=== PATIENT | male | born 1940 | race Caucasian/White ===

== ENCOUNTER → 2019-01-20 | Outpatient (CLI) | payer MEDICARE, SELFPAY ==
[2019-01-20 13:03] VITALS: BMI 31.7
== END | disposition home or self-care (01) ==
PROVIDERS: Family Provider Family Medicine; PCP Family Medicine; Visit Provider Physician Assistant
DX: J34.89 Other specified disorders of nose and nasal sinuses (principal)
CPT/HCPCS: 87081

== ENCOUNTER → 2020-11-02 12:08 | Outpatient (CLI) | payer MEDICARE, SELFPAY ==
[2020-09-14 06:48] VITALS: BMI 34.1
[2020-11-02 15:48] LABS: Absolute Lymphocyte Count 1.54 X10^3/uL (0.83-4.51); Absolute Neutrophil Count 4.2 X10^3/uL (2.0-7.7); Basophil# 0.03 X10^3/uL; Basophil% 0.4 % (0-1); Eosinophil# 0.14 X10^3/uL; Eosinophils% 2.1 % (0-5); Hematocrit 42.7 % (40-54); Hemoglobin 13.4 g/dL (13.0-16.5); Lymphocyte # 1.54 X10^3/ul (0.83-4.51); Mean Corp Hgb Conc 31.4 g/dL (32-36); Mean Corpuscular Hgb 29.6 pg (27.0-32.0); Mean Corpuscular Volume 94.3 fL (80-94); Mean Platelet Vol. 11.4 fl (6.2-12.0); Monocyte# 0.78 X10^3/uL; Monocyte% 11.6 % (0-10); NRBC Flagged by Analyzer 0 % (0-5); Neutrophil % 62.8 % (47-70); Platelet Count 162 K/mm3 (150-450); RBC Distribution Width CV 13.4 % (11.6-14.6); RBC Distribution Width SD 46.4 fl (35.1-43.9); Red Blood Count 4.53 M/mm3 (4.6-6.2); White Blood Count 6.7 K/mm3 (4.4-11.0)
[2020-11-02 16:40] LABS: ALB/GLOB Ratio 1.1 RATIO (0.9-2.4); AST(SGOT) 20 U/L (15-37); Alanine Aminotransfer ALT/SGPT 21 U/L (16-61); Albumin, Serum 3.6 g/dL (3.2-5.0); Alkaline Phosphatase 70 U/L (45-117); Anion Gap 4 (5-15); BUN 33 mg/dL (7-18); BUN/Creat Ratio 19.9 RATIO (10-20); Calcium,Total 8.9 mg/dL (8.5-10.1); Chloride 106 mmol/L (98-107); Cholesterol 117 mg/dL (200); Creatinine, Serum 1.66 mg/dL (0.70-1.30); EST Glomerular Filtration Rate 43 mL/min (>60); Est Glom Filt Rate - Afr Amer 52 mL/min (>60); Globulin 3.4 g/dL (2.2-4.2); Glucose 83 mg/dL (74-106); High Density Lipoprotein 45 mg/dL; Magnesium 2.1 mg/dL (1.6-2.6); Potassium 4.4 mmol/L (3.5-5.1); Sodium Level 138 mmol/L (136-145); T4 Free Direct 1.16 ng/dL (0.76-1.46); Triglycerides 115 mg/dL; Very Low Density Lipoprotein 23 mg/dL (5-40)
[2020-11-02 16:44] LABS: Microalbumin,Random Urine 6.2 mg/L (NO RANGE EST.); Microalbumin:Creatinine Ratio 5.3 mg/g CRE (<30 mg/g CRE)
[2020-11-04 16:54] LABS: Thyroid Peroxidase AB 115 IU/mL (0-34)
[2020-11-04 17:04] LABS: Anti-Mitochondrial AB <20.0 Units (0.0-20.0)
== END ==
PROVIDERS: PCP Family Medicine; Visit Provider Family Medicine
DX: I10 Essential (primary) hypertension (principal); E03.9 Hypothyroidism, unspecified; I48.0 Paroxysmal atrial fibrillation
CPT/HCPCS: 36415; 80053; 80061; 82043; 82570; 83516; 83735; 84439; 84443; 85025; 86376

== ENCOUNTER → 2020-11-10 09:48 | Outpatient (CLI) | payer MEDICARE, SELFPAY ==
[2020-09-14 06:48] VITALS: BMI 34.1
[2020-11-10 12:32] LABS: Anion Gap 5 (5-15); BUN 32 mg/dL (7-18); BUN/Creat Ratio 21.1 RATIO (10-20); Calcium,Total 8.5 mg/dL (8.5-10.1); Chloride 108 mmol/L (98-107); Creatinine, Serum 1.52 mg/dL (0.70-1.30); EST Glomerular Filtration Rate 47 mL/min (>60); Est Glom Filt Rate - Afr Amer 57 mL/min (>60); Glucose 88 mg/dL (74-106); Potassium 4.5 mmol/L (3.5-5.1); Sodium Level 140 mmol/L (136-145); Thyroid Stim Hormone (TSH) 2.79 uIU/mL (0.358-3.74)
== END ==
PROVIDERS: PCP Family Medicine; Referring Provider Family Medicine; Visit Provider Family Medicine
DX: I10 Essential (primary) hypertension (principal); L08.9 Local infection of the skin and subcutaneous tissue, unspecified; T14.8XXA Other injury of unspecified body region, initial encounter; X58.XXXA Exposure to other specified factors, initial encounter; Y93.9 Activity, unspecified; Y92.9 Unspecified place or not applicable; Y99.9 Unspecified external cause status
CPT/HCPCS: 36415; 80048; 84443; 87070; 87205

== ENCOUNTER → 2020-11-10 18:12 | Outpatient (CLI) | payer MEDICARE, SELFPAY ==
[2020-11-10 14:44] VITALS: BMI 34.1
== END ==
PROVIDERS: PCP Family Medicine; Visit Provider Physician Assistant
DX: L08.9 Local infection of the skin and subcutaneous tissue, unspecified (principal); T14.8XXA Other injury of unspecified body region, initial encounter
CPT/HCPCS: 87070; 87077; 87186; 87205

== ENCOUNTER → 2020-11-11 12:56 | Outpatient (CLI) | payer MEDICARE, SELFPAY ==
[2020-09-14 06:48] VITALS: BMI 34.1
[2020-11-10 14:44] VITALS: BMI 34.1
--- NOTE | 2020-11-11 12:59 | US_ITS ---
STUDY: THYROID ULTRASOUND REASON FOR EXAM: Male, 80 years old. NODULE TECHNIQUE: Ultrasound evaluation of the thyroid was performed with real-time and static lind-scale imaging. COMPARISON: None. FINDINGS: RIGHT LOBE: The right lobe of the thyroid gland measures 4.4 cm x 1.5 cm x 1.2 cm. There is a heterogeneous echotexture. There are no demonstrated solid, cystic or complex lesions. LEFT LOBE: The left lobe of the thyroid gland measures 4.5 cm x 1.6 cm x 1.0 cm. There is a heterogeneous echotexture. There is a 7 mm x 6 mm x 4 mm mildly echogenic solid nodule in the lower pole of the left lobe of the thyroid. ISTHMUS: The isthmus measures 2.6 mm. The regional lymph nodes are normal. US/Thyroid IMPRESSION: 7 mm x 6 mm x 4 mm mildly echogenic nodule in the lower pole of the left liver. Correlation with nuclear medicine thyroid scan and thyroid uptake examination is recommended. Electronically Signed: Connor Garcia MD at 11:11 EDT , Service support ,
== END ==
PROVIDERS: PCP Family Medicine; Referring Provider Family Medicine; Visit Provider Family Medicine
DX: E04.1 Nontoxic single thyroid nodule (principal)
CPT/HCPCS: 76536

== ENCOUNTER → 2020-11-16 14:00 | Outpatient (CLI) | payer MEDICARE, SELFPAY ==
[2020-09-14 06:48] VITALS: BMI 34.1
[2020-11-10 14:44] VITALS: BMI 34.1
--- NOTE | 2020-11-16 14:02 | ECHOCS_ITS ---
Reason For Study: MURMUR Procedure This was a 2D Doppler, Color Flow transthoracic echocardiogram. The study was technically difficult. Contrast injection was performed. Exam performed in department. Left Ventricle Mild segmental systolic dysfunction (see wall motion). The estimated ejection fraction is 45 %. Unable to assess diastolic dysfunction. Posterior-Basal: Hypokinetic. Basal inferoseptal: Hypokinetic. Mid-Anterior : Hypokinetic. Mid-Lateral : Hypokinetic. Mid-Posterior: Hypokinetic. Mid- inferoseptal : Hypokinetic. Mid-anteroseptal : Hypokinetic. Anterior Van : Hypokinetic. Septal Van : Hypokinetic. Right Ventricle Normal RV size. Normal systolic function. Atria The left atrium is moderately enlarged. Normal right atrium. No doppler evidence for ASD. Mitral Valve There is mild mitral annular calcification. Normal mitral valve. Trivial mitral valve insufficiency. Tricuspid Valve Normal tricuspid valve. Trivial tricuspid valve insufficiency. Unable to estimate RV systolic pressure/pulmonary artery pressure due to technically difficult study. Aortic Valve Trisinus/trileaflet aortic valve. Moderate focal aortic valve calcification. Mild aortic stenosis. Mild (1+) aortic valve insufficiency. Pulmonic Valve The pulmonic valve is not well visualized. Mild (1+) pulmonic valve insufficiency. Great Vessels Normal sized aortic root. Calcified aortic root. Pericardium/Pleural No pericardial effusion. Medication 22 gauge I.V. with prn adaptor inserted into left arm. Diluted definity 7ml given slow IV push to enhance endocardial definition. MMode/2D Measurements & Calculations RVDd: 3.7 cm LVOT diam: 2.0 cm Ao root diam: 3.8 cm LVOT area: 3.0 cm2 LAV(MOD-bp): 117.9 ml LVAd ap4: 44.2 cm2 LVAd ap2: 39.6 cm2 LAV(MOD-bp) Indexed: 53.8 ml/m2 LVLd ap4: 8.7 cm LVLd ap2: 8.7 cm LAV(MOD-sp2): 104.3 ml EDV(MOD-sp4): 183.2 ml EDV(MOD-sp2): 146.0 ml LAV(MOD-sp4): 122.7 ml EDV(sp4-el): 189.5 ml EDV(sp2-el): 153.2 ml LVAs ap4: 28.7 cm2 LVAs ap2: 22.9 cm2 LVLs ap4: 7.2 cm LVLs ap2: 6.8 cm ESV(MOD-sp4): 98.5 ml ESV(MOD-sp2): 63.7 ml ESV(sp4-el): 97.9 ml ESV(sp2-el): 65.8 ml EF(MOD-sp4): 46.2 % EF(MOD-sp2): 56.4 % EF(sp4-el): 48.3 % SV(MOD-sp4): 84.7 ml SV(MOD-sp2): 82.3 ml SV(sp4-el): 91.5 ml LA A4 area: 31.2 cm2 LA dimension(2D): 5.1 cm RA A4 area: 22.3 cm2 Time Measurements MV dec time: 0.23 sec Doppler Measurements & Calculations MV E max emmanuel: 108.9 cm/sec Ao V2 max: 182.8 cm/sec AI max emmanuel: 469.0 cm/sec Ao max P.4 mmHg AI max P.1 mmHg Ao V2 mean: 138.4 cm/sec AI dec slope: 193.0 cm/sec2 Ao mean P.3 mmHg AI P1/2t: 711.9 msec Ao V2 VTI: 39.6 cm NEGRO(I,D): 1.6 cm2 NEGRO(V,D): 1.6 cm2 LV V1 max: 96.3 cm/sec SV(LVOT): 63.3 ml PA V2 max: 106.8 cm/sec LV V1 max P.7 mmHg LV V1 mean P.8 mmHg LV V1 mean: 63.3 cm/sec LV V1 VTI: 21.2 cm PI end-d emmanule: 125.4 cm/sec ECHO/Echo Complete W/ Contrast Interpretation Summary The study was technically difficult. Contrast injection was performed. Mild segmental systolic dysfunction (see wall motion). The estimated ejection fraction is 45 %. The left atrium is moderately enlarged. There is mild mitral annular calcification. Trivial mitral valve insufficiency. Trivial tricuspid valve insufficiency. Mild aortic stenosis. Mild (1+) aortic valve insufficiency. Mild (1+) pulmonic valve insufficiency. Calcified aortic root. Unable to estimate RV systolic pressure/pulmonary artery pressure due to techni costa difficult study. Unable to assess diastolic dysfunction. Ordering Physician: Vinay Blackburn Referring Physician: Vinay Blackburn Performed By: Yari Baltazar, JHON, RVT
== END ==
PROVIDERS: PCP Family Medicine; Referring Provider Family Medicine; Visit Provider Family Medicine
DX: R01.1 Cardiac murmur, unspecified (principal); E04.1 Nontoxic single thyroid nodule
CPT/HCPCS: 93306; Q9957; A4216; C8929

== ENCOUNTER → 2020-11-17 14:22 | Outpatient (CLI) | payer MEDICARE, SELFPAY ==
[2020-11-10 14:44] VITALS: BMI 34.1
[2020-11-17 18:08] LABS: Anion Gap 3 (5-15); BUN 31 mg/dL (7-18); BUN/Creat Ratio 22.6 RATIO (10-20); Calcium,Total 8.7 mg/dL (8.5-10.1); Chloride 107 mmol/L (98-107); Creatinine, Serum 1.37 mg/dL (0.70-1.30); EST Glomerular Filtration Rate 53 mL/min (>60); Est Glom Filt Rate - Afr Amer 64 mL/min (>60); Glucose 95 mg/dL (74-106); Sodium Level 138 mmol/L (136-145)
== END ==
PROVIDERS: PCP Family Medicine; Referring Provider Family Medicine; Visit Provider Family Medicine
DX: R94.4 Abnormal results of kidney function studies (principal)
CPT/HCPCS: 36415; 80048

== ENCOUNTER → 2021-03-14 13:43 | Outpatient (CLI) | payer MEDICARE, SELFPAY ==
[2021-03-14 15:24] LABS: Hematocrit 41.4 % (40-54); Hemoglobin 13.6 g/dL (13.0-16.5); Mean Corp Hgb Conc 32.9 g/dL (32-36); Mean Corpuscular Hgb 30.4 pg (27.0-32.0); Mean Corpuscular Volume 92.4 fL (80-94); Mean Platelet Vol. 11.2 fl (6.2-12.0); Platelet Count 164 K/mm3 (150-450); RBC Distribution Width CV 12.8 % (11.6-14.6); RBC Distribution Width SD 43.3 fl (35.1-43.9); Red Blood Count 4.48 M/mm3 (4.6-6.2); White Blood Count 7.2 K/mm3 (4.4-11.0)
[2021-03-14 16:01] LABS: Anion Gap 6 (5-15); BUN 32 mg/dL (7-18); BUN/Creat Ratio 16.3 RATIO (10-20); Calcium,Total 8.7 mg/dL (8.5-10.1); Chloride 107 mmol/L (98-107); Creatinine, Serum 1.96 mg/dL (0.70-1.30); EST Glomerular Filtration Rate 35 mL/min (>60); Est Glom Filt Rate - Afr Amer 43 mL/min (>60); Glucose 108 mg/dL (74-106); Lipase 91 U/L (73-393); Potassium 4.2 mmol/L (3.5-5.1); Sodium Level 140 mmol/L (136-145)
== END ==
PROVIDERS: Nurse Practitioner Family; PCP Family Medicine; Visit Provider Family Medicine
DX: R10.9 Unspecified abdominal pain (principal)
CPT/HCPCS: 36415; 80048; 83690; 85027

== ENCOUNTER → 2021-03-15 11:08 | Outpatient (CLI) | payer MEDICARE, SELFPAY ==
--- NOTE | 2021-03-15 11:10 | US_ITS ---
INDICATION: UNSPECIFIED ABD PAIN EXAMINATION: Ultrasound US Abdomen Complete TECHNIQUE: Green-scale and color Doppler imaging was performed of the abdomen. COMPARISON: None. FINDINGS: LIVER: There is increased hepatic echogenicity suggestive of hepatic steatosis. Multiple simple cysts visualized within the liver largest 3 measuring 1.9 x 1.5 x 1.9 cm, 1.1 x 1.0 x 1.0 cm and 2.6 x 2.2 x 1.5 cm. No intrahepatic biliary ductal dilatation. There is no free fluid. GALLBLADDER AND BILIARY TREE: A hyperechoic focus in the dependent gallbladder wall visualized measuring 0.6 cm and could represent a stone. No evidence of pericholecystic fluid or gallbladder wall thickening is demonstrated. The proximal common bile duct measures 0.4, which is within normal limits for the patient''s age. SONOGRAPHIC VALLE''S SIGN: Negative. PANCREAS: No focal abnormality is demonstrated in the pancreas. No pancreatic ductal dilatation. SPLEEN: Limited evaluation of the spleen due to overlying bowel gas pattern. KIDNEYS: There is no hydronephrosis. No shadowing calculus, focal lesion, or perinephric collection is demonstrated. The right kidney measures 12.4 x 4.8 x 4.9 cm, the right renal cortex unremarkable measuring 1.0 cm. The left kidney measures 10.3 x 4.9 x 4.3 cm, thinning of the left renal cortex measuring 0.5 cm. VESSELS: Atherosclerotic disease with scattered calcified plaque visualized in the abdominal aorta, Limited evaluation but no evidence of aneurysmal dilatation is seen. The proximal abdominal aorta measures 1.7 cm. The distal abdominal aorta measures 2.0 x 1.6 cm. The inferior vena cava is obscured by bowel gas pattern. US/Abdomen Complete IMPRESSION: Hepatic steatosis. Simple cysts visualized within the liver. 0.6 cm hyperechoic focus visualized in the wall of the gallbladder which either represents a stone or a polyp. No acute sonographic abnormality is demonstrated in the abdomen. Electronically Signed: Steve Rubio MD at 14:59 EDT Tel , Service support ,
== END ==
PROVIDERS: PCP Family Medicine; Referring Provider Nurse Practitioner Family; Visit Provider Nurse Practitioner Family
DX: R10.9 Unspecified abdominal pain (principal)
CPT/HCPCS: 76700

== ENCOUNTER → 2021-04-18 09:41 | Outpatient (CLI) | payer MEDICARE, SELFPAY ==
[2021-04-18 09:43] LABS: Bacteria 0 SEEN /hpf (None Seen); Mucous, Urine 0 SEEN /hpf (<or=2+); Red Blood Cells-Urine 0 SEEN /hpf (0-5); Squamous Epithelial Cells - UA 0 SEEN /hpf (0-5); White Blood Cells 0 SEEN /hpf (0-5)
[2021-04-18 12:18] LABS: Absolute Lymphocyte Count 0.96 X10^3/uL (0.83-4.51); Absolute Neutrophil Count 4.7 X10^3/uL (2.0-7.7); Basophil# 0.02 X10^3/uL; Basophil% 0.3 % (0-1); Eosinophil# 0.12 X10^3/uL; Eosinophils% 1.8 % (0-5); Hemoglobin 13.2 g/dL (13.0-16.5); Lymphocyte # 0.96 X10^3/ul (0.83-4.51); Lymphocyte % 14.8 % (19-41); Mean Corp Hgb Conc 32.2 g/dL (32-36); Mean Corpuscular Hgb 30.1 pg (27.0-32.0); Mean Corpuscular Volume 93.6 fL (80-94); Monocyte# 0.72 X10^3/uL; Monocyte% 11.1 % (0-10); NRBC Flagged by Analyzer 0 % (0-5); Neutrophil # 4.65 X10^3/uL (2.7-7.7); Neutrophil % 71.7 % (47-70); Platelet Count 159 K/mm3 (150-450); RBC Distribution Width CV 12.9 % (11.6-14.6); Red Blood Count 4.38 M/mm3 (4.6-6.2); White Blood Count 6.5 K/mm3 (4.4-11.0)
[2021-04-18 12:21] LABS: Color, Urine Yellow (Yellow); Glucose, Dipstick Normal (Normal); Ketone-Dipstick Negative (Negative); Leukocyte Esterase-Dipstick Negative /ul (Negative); Nitrite-Dipstick Negative (Negative); Occult Blood-Urine Negative /ul (Negative); Protein-Dipstick Negative (Negative); Urine Bilirubin Dipstick Negative (Negative); Urine Clarity Sl. Cloudy (Clear); Urine Urobilinogen Normal (Normal)
[2021-04-18 12:46] LABS: ALB/GLOB Ratio 0.9 RATIO (0.9-2.4); AST(SGOT) 19 U/L (15-37); Alanine Aminotransfer ALT/SGPT 23 U/L (16-61); Albumin, Serum 3.3 g/dL (3.2-5.0); Alkaline Phosphatase 65 U/L (45-117); Anion Gap 7 (5-15); BUN 36 mg/dL (7-18); Calcium,Total 9.1 mg/dL (8.5-10.1); Chloride 107 mmol/L (98-107); Cholesterol 133 mg/dL (200); Creatinine, Serum 1.64 mg/dL (0.70-1.30); EST Glomerular Filtration Rate 43 mL/min (>60); Est Glom Filt Rate - Afr Amer 52 mL/min (>60); Globulin 3.6 g/dL (2.2-4.2); Glucose 102 mg/dL (74-106); High Density Lipoprotein 44 mg/dL; Magnesium 2.2 mg/dL (1.6-2.6); Potassium 4.8 mmol/L (3.5-5.1); Protein, Total 6.9 g/dL (6.4-8.2); Sodium Level 138 mmol/L (136-145); Thyroid Stim Hormone (TSH) 3.35 uIU/mL (0.358-3.74); Triglycerides 119 mg/dL; Very Low Density Lipoprotein 24 mg/dL (5-40)
== END ==
PROVIDERS: PCP Family Medicine; Referring Provider Family Medicine; Visit Provider Family Medicine
DX: I10 Essential (primary) hypertension (principal); I48.0 Paroxysmal atrial fibrillation
CPT/HCPCS: 36415; 80053; 80061; 81001; 83735; 84443; 85025

== ENCOUNTER 2021-10-21 10:59 | Outpatient (CLI) | payer MEDICARE, SELFPAY ==
[2021-10-21 11:14] LABS: Bacteria 0 SEEN /hpf (None Seen); Mucous, Urine 0 SEEN /hpf (<or=2+); Red Blood Cells-Urine 0 SEEN /hpf (0-5); Squamous Epithelial Cells - UA 0 SEEN /hpf (0-5); White Blood Cells 0 SEEN /hpf (0-5)
[2021-10-21 12:10] LABS: Color, Urine Yellow (Yellow); Glucose, Dipstick Normal (Normal); Ketone-Dipstick Negative (Negative); Leukocyte Esterase-Dipstick Negative /ul (Negative); Nitrite-Dipstick Negative (Negative); Occult Blood-Urine Negative /ul (Negative); Protein-Dipstick Negative (Negative); Urine Bilirubin Dipstick Negative (Negative); Urine Clarity Clear (Clear); Urine Urobilinogen Normal (Normal)
[2021-10-21 12:17] LABS: Absolute Lymphocyte Count 1.21 X10^3/uL (0.83-4.51); Absolute Neutrophil Count 5.5 X10^3/uL (2.0-7.7); Basophil# 0.03 X10^3/uL; Basophil% 0.4 % (0-1); Eosinophil# 0.22 X10^3/uL; Eosinophils% 2.9 % (0-5); Hematocrit 39.4 % (40-54); Hemoglobin 12.8 g/dL (13.0-16.5); Lymphocyte # 1.21 X10^3/ul (0.83-4.51); Lymphocyte % 15.9 % (19-41); Mean Corp Hgb Conc 32.5 g/dL (32-36); Mean Corpuscular Hgb 29.9 pg (27.0-32.0); Mean Corpuscular Volume 92.1 fL (80-94); Mean Platelet Vol. 10.9 fl (6.2-12.0); Monocyte# 0.61 X10^3/uL; NRBC Flagged by Analyzer 0 % (0-5); Neutrophil # 5.52 X10^3/uL (2.7-7.7); Neutrophil % 72.5 % (47-70); Platelet Count 147 K/mm3 (150-450); RBC Distribution Width CV 13.1 % (11.6-14.6); RBC Distribution Width SD 43.8 fl (35.1-43.9); Red Blood Count 4.28 M/mm3 (4.6-6.2); White Blood Count 7.6 K/mm3 (4.4-11.0)
[2021-10-21 12:30] LABS: Protein, Urine (Random) 16.3 mg/dL (<11.9); Protein:Creat Ratio 180 mg/g CRE (0-200)
[2021-10-21 13:14] LABS: AST(SGOT) 26 U/L (15-37); Alanine Aminotransfer ALT/SGPT 27 U/L (16-61); Albumin, Serum 3.4 g/dL (3.2-5.0); Alkaline Phosphatase 70 U/L (45-117); Anion Gap 4 (5-15); BUN 33 mg/dL (7-18); BUN/Creat Ratio 23.4 RATIO (10-20); Calcium,Total 8.3 mg/dL (8.5-10.1); Chloride 109 mmol/L (98-107); Cholesterol 122 mg/dL (200); Creatinine, Serum 1.41 mg/dL (0.70-1.30); EST Glomerular Filtration Rate 51 mL/min (>60); Est Glom Filt Rate - Afr Amer 62 mL/min (>60); Globulin 3.3 g/dL (2.2-4.2); Glucose 118 mg/dL (74-106); High Density Lipoprotein 43 mg/dL; Magnesium 1.6 mg/dL (1.6-2.6); Phosphorus 2.8 mg/dL (2.5-4.9); Potassium 4.1 mmol/L (3.5-5.1); Protein, Total 6.7 g/dL (6.4-8.2); Sodium Level 139 mmol/L (136-145); T4 Free Direct 1.22 ng/dL (0.76-1.46); Thyroid Stim Hormone (TSH) 2.04 uIU/mL (0.358-3.74); Triglycerides 127 mg/dL; Very Low Density Lipoprotein 25 mg/dL (5-40)
== END 2021-10-21 23:59 | disposition home or self-care (01) ==
LOC: MFPLAB 11:01
PROVIDERS: PCP Family Medicine; Referring Provider Family Medicine; Visit Provider Family Medicine
DX: I12.9 Hypertensive chronic kidney disease with stage 1 through stage 4 chronic kidney disease, or unspecified chronic kidney disease (principal); I48.0 Paroxysmal atrial fibrillation; N18.30 Chronic kidney disease, stage 3 unspecified; I25.10 Atherosclerotic heart disease of native coronary artery without angina pectoris; E03.8 Other specified hypothyroidism
CPT/HCPCS: 36415; 80053; 80061; 81001; 82306; 82570; 83735; 84100; 84156; 84439; 84443; 85025

== ENCOUNTER 2021-10-24 10:26 | Outpatient (CLI) | payer MEDICARE, SELFPAY ==
[2021-10-24 12:53] LABS: Ferritin 160 ng/mL (26-388); Iron 79 ug/dL (65-175); Iron Binding Capacity,Total 290 ug/dL (250-450)
[2021-10-24 14:04] LABS: Vitamin B12 429 pg/mL (211-911)
== END 2021-10-24 23:59 | disposition home or self-care (01) ==
LOC: MFPLAB 10:31
PROVIDERS: PCP Family Medicine; Referring Provider Family Medicine; Visit Provider Family Medicine
DX: D64.9 Anemia, unspecified (principal)
CPT/HCPCS: 36415; 82607; 82728; 83540; 83550

== ENCOUNTER 2021-10-27 11:53 | Outpatient (CLI) | payer MEDICARE, SELFPAY ==
--- NOTE | 2021-10-27 12:07 | US_ITS ---
STUDY: THYROID ULTRASOUND REASON FOR EXAM: Male, 81 years old. THYROID NODULE TECHNIQUE: Ultrasound evaluation of the thyroid was performed with real-time and static lind-scale imaging. COMPARISON: Comparison is made with prior study dated 11/11/2020. FINDINGS: RIGHT LOBE: The right lobe of the thyroid gland measures 4.5 cm x 1.3 cm x 1.4 cm. There is a heterogeneous echotexture. There are no demonstrated solid, cystic or complex lesions. LEFT LOBE: The left lobe of the thyroid gland measures 4.3 cm x 1.2 cm x 2 cm. There is a heterogeneous echotexture. Stable 6 mm x 6 mm x 4 mm mildly echogenic solid nodule in the lower pole of the left lobe of the thyroid. ISTHMUS: The isthmus measures 2 mm. Incidental note is made of a 1.4 cm x 0.5 cm x 0.6 cm right cervical lymph node. This appears to be benign. US/Thyroid IMPRESSION: Heterogeneous appearance of both lobes of thyroid gland. Stable 6 mm x 6 mm x 4 mm nodule in the left thyroid lobe. Electronically Signed: Connor Garcia MD at 12:47 EDT ,
== END 2021-10-27 23:59 | disposition home or self-care (01) ==
LOC: CT 12:03 → US 12:06
PROVIDERS: PCP Family Medicine; Referring Provider Family Medicine; Visit Provider Family Medicine
DX: E04.1 Nontoxic single thyroid nodule (principal); I72.3 Aneurysm of iliac artery
CPT/HCPCS: 76536

== ENCOUNTER → 2022-02-14 | Outpatient (CLI) | payer MEDICARE, SELFPAY ==
[2022-02-14 09:49] LABS: Bacteria 0 SEEN /hpf (None Seen); Mucous, Urine 0 SEEN /hpf (<or=2+); Red Blood Cells-Urine 0 SEEN /hpf (0-5); Squamous Epithelial Cells - UA 0 SEEN /hpf (0-5); White Blood Cells 0 SEEN /hpf (0-5)
[2022-02-14 10:36] LABS: Absolute Lymphocyte Count 1.16 X10^3/uL (0.83-4.51); Basophil# 0.03 X10^3/uL; Basophil% 0.4 % (0-1); Eosinophils% 2.8 % (0-5); Hematocrit 40.9 % (40-54); Hemoglobin 13.4 g/dL (13.0-16.5); Lymphocyte # 1.16 X10^3/ul (0.83-4.51); Mean Corp Hgb Conc 32.8 g/dL (32-36); Mean Corpuscular Hgb 30.5 pg (27.0-32.0); Mean Corpuscular Volume 93.2 fL (80-94); Mean Platelet Vol. 10.9 fl (6.2-12.0); Monocyte# 0.79 X10^3/uL; Monocyte% 10.9 % (0-10); NRBC Flagged by Analyzer 0 % (0-5); Neutrophil # 5.04 X10^3/uL (2.7-7.7); Neutrophil % 69.5 % (47-70); Platelet Count 147 K/mm3 (150-450); RBC Distribution Width CV 12.7 % (11.6-14.6); RBC Distribution Width SD 43.6 fl (35.1-43.9); Red Blood Count 4.39 M/mm3 (4.6-6.2); White Blood Count 7.3 K/mm3 (4.4-11.0)
[2022-02-14 10:40] LABS: Color, Urine Yellow (Yellow); Glucose, Dipstick Normal (Normal); Ketone-Dipstick Negative (Negative); Leukocyte Esterase-Dipstick Negative /ul (Negative); Nitrite-Dipstick Negative (Negative); Occult Blood-Urine Negative /ul (Negative); Protein-Dipstick Negative (Negative); Specific Gravity, Urine 1.015 (1.002-1.030); Urine Bilirubin Dipstick Negative (Negative); Urine Clarity Clear (Clear); Urine Urobilinogen Normal (Normal)
[2022-02-14 10:46] LABS: Vitamin B12 507 pg/mL (211-911)
[2022-02-14 10:48] LABS: Protein, Urine (Random) 10.5 mg/dL (<11.9); Protein:Creat Ratio 125 mg/g CRE (0-200)
[2022-02-14 10:58] LABS: PTHIN 50.6 pg/mL (18.4-80.1)
[2022-02-14 11:00] LABS: ALB/GLOB Ratio 1.1 RATIO (0.9-2.4); AST(SGOT) 20 U/L (15-37); Alanine Aminotransfer ALT/SGPT 21 U/L (16-61); Albumin, Serum 3.5 g/dL (3.2-5.0); Alkaline Phosphatase 71 U/L (45-117); Anion Gap 5 (5-15); BUN 34 mg/dL (7-18); BUN/Creat Ratio 21.4 RATIO (10-20); Calcium,Total 8.8 mg/dL (8.5-10.1); Chloride 112 mmol/L (98-107); Cholesterol 117 mg/dL (200); Creatinine, Serum 1.59 mg/dL (0.70-1.30); EST Glomerular Filtration Rate 45 mL/min (>60); Est Glom Filt Rate - Afr Amer 54 mL/min (>60); Ferritin 115 ng/mL (26-388); Globulin 3.2 g/dL (2.2-4.2); Glucose 139 mg/dL (74-106); High Density Lipoprotein 41 mg/dL; Iron 89 ug/dL (65-175); Iron Binding Capacity,Total 270 ug/dL (250-450); Magnesium 1.7 mg/dL (1.6-2.6); Phosphorus 2.8 mg/dL (2.5-4.9); Potassium 4.4 mmol/L (3.5-5.1); Protein, Total 6.7 g/dL (6.4-8.2); Sodium Level 141 mmol/L (136-145); T4 Free Direct 1.16 ng/dL (0.76-1.46); Thyroid Stim Hormone (TSH) 2.39 uIU/mL (0.358-3.74); Triglycerides 103 mg/dL; Very Low Density Lipoprotein 21 mg/dL (5-40)
== END | disposition home or self-care (01) ==
LOC: MFPLAB 08:47
PROVIDERS: PCP Family Medicine; Referring Provider Family Medicine; Visit Provider Family Medicine
DX: D64.9 Anemia, unspecified (principal); I48.0 Paroxysmal atrial fibrillation; N18.30 Chronic kidney disease, stage 3 unspecified; E03.8 Other specified hypothyroidism; I25.10 Atherosclerotic heart disease of native coronary artery without angina pectoris
CPT/HCPCS: 36415; 80053; 80061; 81001; 82570; 82607; 82728; 82746; 83540; 83550; 83735; 83970; 84100; 84156; 84439; 84443; 85025

== ENCOUNTER → 2022-06-06 | Outpatient (CLI) | payer MEDICARE, SELFPAY ==
[2022-06-06 17:52] LABS: Absolute Lymphocyte Count 1.44 X10^3/uL (0.83-4.51); Absolute Neutrophil Count 3.4 X10^3/uL (2.0-7.7); Basophil# 0.03 X10^3/uL; Basophil% 0.5 % (0-1); Eosinophil# 0.28 X10^3/uL; Eosinophils% 4.7 % (0-5); Hematocrit 40.7 % (40-54); Lymphocyte # 1.44 X10^3/ul (0.83-4.51); Lymphocyte % 24.4 % (19-41); Mean Corp Hgb Conc 31.9 g/dL (32-36); Mean Corpuscular Hgb 30.2 pg (27.0-32.0); Mean Corpuscular Volume 94.7 fL (80-94); Mean Platelet Vol. 11.5 fl (6.2-12.0); Monocyte# 0.72 X10^3/uL; Monocyte% 12.2 % (0-10); NRBC Flagged by Analyzer 0 % (0-5); Neutrophil # 3.42 X10^3/uL (2.7-7.7); Neutrophil % 57.9 % (47-70); Platelet Count 140 K/mm3 (150-450); RBC Distribution Width CV 13.2 % (11.6-14.6); RBC Distribution Width SD 45.6 fl (35.1-43.9); White Blood Count 5.9 K/mm3 (4.4-11.0)
[2022-06-06 18:17] LABS: Protein, Urine (Random) 15.3 mg/dL (<11.9); Protein:Creat Ratio 137 mg/g CRE (0-200)
[2022-06-06 18:22] LABS: Vitamin D,25 Hydroxy 47.2 ng/mL
[2022-06-06 18:24] LABS: ALB/GLOB Ratio 1.2 RATIO (0.9-2.4); AST(SGOT) 18 U/L (15-37); Alanine Aminotransfer ALT/SGPT 26 U/L (16-61); Albumin, Serum 3.5 g/dL (3.2-5.0); Alkaline Phosphatase 69 U/L (45-117); Anion Gap 5 (5-15); BUN 30 mg/dL (7-18); BUN/Creat Ratio 20.1 RATIO (10-20); Calcium,Total 8.6 mg/dL (8.5-10.1); Chloride 108 mmol/L (98-107); Cholesterol 128 mg/dL (200); Creatinine, Serum 1.49 mg/dL (0.70-1.30); EST Glomerular Filtration Rate 48 mL/min (>60); Est Glom Filt Rate - Afr Amer 58 mL/min (>60); Globulin 2.9 g/dL (2.2-4.2); Glucose 82 mg/dL (74-106); High Density Lipoprotein 39 mg/dL; Potassium 4.6 mmol/L (3.5-5.1); Protein, Total 6.4 g/dL (6.4-8.2); Sodium Level 142 mmol/L (136-145); T4 Free Direct 1.14 ng/dL (0.76-1.46); Thyroid Stim Hormone (TSH) 2.73 uIU/mL (0.358-3.74); Triglycerides 156 mg/dL; Very Low Density Lipoprotein 31 mg/dL (5-40)
== END | disposition home or self-care (01) ==
LOC: MFPLAB 14:31
PROVIDERS: PCP Family Medicine; Referring Provider Family Medicine; Visit Provider Family Medicine
DX: I12.9 Hypertensive chronic kidney disease with stage 1 through stage 4 chronic kidney disease, or unspecified chronic kidney disease (principal); N18.30 Chronic kidney disease, stage 3 unspecified
CPT/HCPCS: 36415; 80053; 80061; 82306; 82570; 83735; 84156; 84439; 84443; 85025

== ENCOUNTER → 2022-11-22 | Outpatient (CLI) | payer MEDICARE, SELFPAY ==
[2022-11-22 12:32] LABS: Absolute Lymphocyte Count 1.49 X10^3/uL (0.83-4.51); Basophil# 0.04 X10^3/uL; Basophil% 0.5 % (0-1); Eosinophil# 0.19 X10^3/uL; Eosinophils% 2.5 % (0-5); Hematocrit 42.9 % (40-54); Lymphocyte # 1.49 X10^3/ul (0.83-4.51); Lymphocyte % 19.7 % (19-41); Mean Corp Hgb Conc 32.6 g/dL (32-36); Mean Corpuscular Hgb 30.5 pg (27.0-32.0); Mean Corpuscular Volume 93.5 fL (80-94); Mean Platelet Vol. 10.6 fl (6.2-12.0); Monocyte# 0.85 X10^3/uL; Monocyte% 11.2 % (0-10); NRBC Flagged by Analyzer 0 % (0-5); Platelet Count 153 K/mm3 (150-450); RBC Distribution Width CV 12.9 % (11.6-14.6); RBC Distribution Width SD 44.3 fl (35.1-43.9); Red Blood Count 4.59 M/mm3 (4.6-6.2); White Blood Count 7.6 K/mm3 (4.4-11.0)
[2022-11-22 12:50] LABS: PTHIN 60.7 pg/mL (18.4-80.1)
[2022-11-22 12:54] LABS: Vitamin B12 552 pg/mL (211-911); Vitamin D,25 Hydroxy 50.9 ng/mL
[2022-11-22 13:17] LABS: AST(SGOT) 22 U/L (15-37); Alanine Aminotransfer ALT/SGPT 24 U/L (16-61); Albumin, Serum 3.5 g/dL (3.2-5.0); Alkaline Phosphatase 69 U/L (45-117); Anion Gap 4 (5-15); BUN 31 mg/dL (7-18); BUN/Creat Ratio 22.8 RATIO (10-20); Calcium,Total 8.8 mg/dL (8.5-10.1); Chloride 110 mmol/L (98-107); Cholesterol 112 mg/dL (200); Creatinine, Serum 1.36 mg/dL (0.70-1.30); EST Glomerular Filtration Rate 53 mL/min (>60); Est Glom Filt Rate - Afr Amer 65 mL/min (>60); Globulin 3.4 g/dL (2.2-4.2); Glucose 100 mg/dL (74-106); High Density Lipoprotein 43 mg/dL; Magnesium 2.1 mg/dL (1.6-2.6); Phosphorus 3.1 mg/dL (2.5-4.9); Potassium 4.7 mmol/L (3.5-5.1); Protein, Total 6.9 g/dL (6.4-8.2); Sodium Level 138 mmol/L (136-145); T4 Free Direct 1.29 ng/dL (0.76-1.46); Thyroid Stim Hormone (TSH) 2.43 uIU/mL (0.358-3.74); Triglycerides 77 mg/dL; Very Low Density Lipoprotein 15 mg/dL (5-40)
== END | disposition home or self-care (01) ==
LOC: MFPLAB 10:49
PROVIDERS: PCP Family Medicine; Visit Provider Family Medicine
DX: N18.30 Chronic kidney disease, stage 3 unspecified (principal); I48.0 Paroxysmal atrial fibrillation; E78.00 Pure hypercholesterolemia, unspecified; E03.8 Other specified hypothyroidism; R41.3 Other amnesia
CPT/HCPCS: 36415; 80053; 80061; 82306; 82607; 83735; 83970; 84100; 84439; 84443; 85025

== ENCOUNTER → 2023-02-07 | Outpatient (CLI) | payer MEDICARE, SELFPAY ==
[2023-02-07 18:10] LABS: Absolute Lymphocyte Count 1.15 X10^3/uL (0.83-4.51); Absolute Neutrophil Count 4.6 X10^3/uL (2.0-7.7); Basophil# 0.02 X10^3/uL; Basophil% 0.3 % (0-1); Eosinophil# 0.11 X10^3/uL; Eosinophils% 1.7 % (0-5); Hematocrit 41.1 % (40-54); Hemoglobin 13.2 g/dL (13.0-16.5); Lymphocyte # 1.15 X10^3/ul (0.83-4.51); Lymphocyte % 17.7 % (19-41); Mean Corp Hgb Conc 32.1 g/dL (32-36); Mean Corpuscular Hgb 30.6 pg (27.0-32.0); Mean Corpuscular Volume 95.1 fL (80-94); Mean Platelet Vol. 11.1 fl (6.2-12.0); Monocyte# 0.61 X10^3/uL; Monocyte% 9.4 % (0-10); NRBC Flagged by Analyzer 0 % (0-5); Neutrophil # 4.58 X10^3/uL (2.7-7.7); Neutrophil % 70.6 % (47-70); Platelet Count 152 K/mm3 (150-450); RBC Distribution Width CV 12.6 % (11.6-14.6); RBC Distribution Width SD 43.7 fl (35.1-43.9); Red Blood Count 4.32 M/mm3 (4.6-6.2); White Blood Count 6.5 K/mm3 (4.4-11.0)
[2023-02-07 18:40] LABS: ALB/GLOB Ratio 0.9 RATIO (0.9-2.4); AST(SGOT) 19 U/L (15-37); Alanine Aminotransfer ALT/SGPT 22 U/L (16-61); Albumin, Serum 3.2 g/dL (3.2-5.0); Alkaline Phosphatase 66 U/L (45-117); Anion Gap 5 (5-15); BUN 39 mg/dL (7-18); BUN/Creat Ratio 24.2 RATIO (10-20); Calcium,Total 8.9 mg/dL (8.5-10.1); Chloride 112 mmol/L (98-107); Cholesterol 116 mg/dL (200); Creatinine, Serum 1.61 mg/dL (0.70-1.30); EST Glomerular Filtration Rate 44 mL/min (>60); Est Glom Filt Rate - Afr Amer 53 mL/min (>60); Globulin 3.4 g/dL (2.2-4.2); Glucose 103 mg/dL (74-106); High Density Lipoprotein 40 mg/dL; Magnesium 2.1 mg/dL (1.6-2.6); Phosphorus 3.3 mg/dL (2.5-4.9); Potassium 4.8 mmol/L (3.5-5.1); Protein, Total 6.6 g/dL (6.4-8.2); Sodium Level 140 mmol/L (136-145); T4 Free Direct 1.06 ng/dL (0.76-1.46); Thyroid Stim Hormone (TSH) 2.23 uIU/mL (0.358-3.74); Triglycerides 159 mg/dL; Very Low Density Lipoprotein 32 mg/dL (5-40)
[2023-02-08 08:38] LABS: PTHIN 36.8 pg/mL (18.4-80.1)
== END | disposition home or self-care (01) ==
LOC: MFPLAB 14:59
PROVIDERS: PCP Family Medicine; Visit Provider Family Medicine
DX: I25.10 Atherosclerotic heart disease of native coronary artery without angina pectoris (principal); I48.0 Paroxysmal atrial fibrillation; N18.30 Chronic kidney disease, stage 3 unspecified; E78.00 Pure hypercholesterolemia, unspecified; E03.8 Other specified hypothyroidism
CPT/HCPCS: 36415; 80053; 80061; 83735; 83970; 84100; 84439; 84443; 85025

== ENCOUNTER → 2023-09-28 | Outpatient (CLI) | payer MEDICARE, SELFPAY ==
[2023-09-28 16:45] LABS: Absolute Lymphocyte Count 1.24 X10^3/uL (0.83-4.51); Absolute Neutrophil Count 4.2 X10^3/uL (2.0-7.7); Basophil# 0.02 X10^3/uL; Basophil% 0.3 % (0-1); Eosinophil# 0.15 X10^3/uL; Eosinophils% 2.4 % (0-5); Hematocrit 44.3 % (40-54); Hemoglobin 14.1 g/dL (13.0-16.5); Lymphocyte # 1.24 X10^3/ul (0.83-4.51); Lymphocyte % 19.6 % (19-41); Mean Corp Hgb Conc 31.8 g/dL (32-36); Mean Corpuscular Hgb 29.9 pg (27.0-32.0); Mean Corpuscular Volume 93.9 fL (80-94); Mean Platelet Vol. 11.2 fl (6.2-12.0); Monocyte# 0.69 X10^3/uL; Monocyte% 10.9 % (0-10); NRBC Flagged by Analyzer 0 % (0-5); Neutrophil % 66.5 % (47-70); Platelet Count 156 K/mm3 (150-450); RBC Distribution Width CV 12.9 % (11.6-14.6); RBC Distribution Width SD 44.5 fl (35.1-43.9); Red Blood Count 4.72 M/mm3 (4.6-6.2); White Blood Count 6.3 K/mm3 (4.4-11.0)
[2023-09-28 16:51] LABS: Color, Urine Yellow (Yellow); Glucose, Dipstick Normal (Normal); Ketone-Dipstick 5 mg/dl (Negative); Leukocyte Esterase-Dipstick Negative /ul (Negative); Nitrite-Dipstick Negative (Negative); Occult Blood-Urine 10 /ul (Negative); Protein-Dipstick 15 mg/dl (Negative); Urine Bilirubin Dipstick Negative (Negative); Urine Clarity Clear (Clear); Urine Urobilinogen Normal (Normal)
[2023-09-28 17:02] LABS: Vitamin B12 563 pg/mL (211-911)
[2023-09-28 17:16] LABS: ALB/GLOB Ratio 1.2 RATIO (0.9-2.4); AST(SGOT) 22 U/L (15-37); Alanine Aminotransfer ALT/SGPT 19 U/L (16-61); Albumin, Serum 3.7 g/dL (3.2-5.0); Alkaline Phosphatase 62 U/L (45-117); Anion Gap 5 (5-15); BUN 30 mg/dL (7-18); BUN/Creat Ratio 20.4 RATIO (10-20); Calcium,Total 8.8 mg/dL (8.5-10.1); Chloride 109 mmol/L (98-107); Cholesterol 127 mg/dL (200); Creatinine, Serum 1.47 mg/dL (0.70-1.30); EST Glomerular Filtration Rate 49 mL/min (>60); Est Glom Filt Rate - Afr Amer 59 mL/min (>60); Globulin 3.2 g/dL (2.2-4.2); Glucose 113 mg/dL (74-106); High Density Lipoprotein 47 mg/dL; Magnesium 2.1 mg/dL (1.6-2.6); Phosphorus 3.7 mg/dL (2.5-4.9); Potassium 4.6 mmol/L (3.5-5.1); Protein, Total 6.9 g/dL (6.4-8.2); Sodium Level 141 mmol/L (136-145); T4 Free Direct 1.21 ng/dL (0.76-1.46); Triglycerides 100 mg/dL; Very Low Density Lipoprotein 20 mg/dL (5-40)
[2023-09-28 17:18] LABS: PTHIN 65.1 pg/mL (18.4-80.1); Protein, Urine (Random) 18.7 mg/dL (<11.9); Protein:Creat Ratio 130 mg/g CRE (0-200)
--- OUTSIDE RECORDS SUMMARY | 2023-09-28 17:41 | XMS RPT_ITS | CCD ---
Author Name Unknown Address [address] [place] [address] Organization [facility] Care Team Providers Care Deployment Technician Name Role Phone Joy Shin DC Unavailable Carley Ford LPN Unavailable [phone] Carley Ford LPN Unavailable [phone] Joy Shin DC Unavailable Vinay Blackburn Primary Care Provider Vinay Blackburn Primary Care Provider [phone] Medications Completed/Discontinued Medications Medication Drug Class(es) Dates Sig (Normalized) Sig (Original) apixaban (3 sources) Factor Xa Inhibitor apixaban (EL IQUIS ORAL) Take by mouth once daily. 0 Active Problems Active Problems Problem Classification Problem Date Documented Da te Episodic/Chronic Diverticulosis and diverticulitis (8 sources) Diverticulitis; Translations: [Diverticulitis of intestine, part unspecified, without perforation or abscess without bleeding] Onset: 02-11-2017 02-11-2017 Chronic Other diseases of bladder and urethra (3 sources) Disorder of bladder; Translations: [Overactive bladder] Onset: 01-19-2016 01-19-2016 Chronic Other male genital disorders (5 sources) Male erectile dysfunction, unspecified; Translations: [Impotence of organic origin] Onset: 01-19-2016 Chronic Past or Other Problems Problem Classification Problem Date Documented Da te Episodic/Chronic Abdominal hernia (3 sources) Left inguinal hernia ; Translations: [Unilateral inguinal hernia, without obstruction or gangrene, not specified as recurrent] Onset: 02-14-2016 02-14-2016 Episodic Other bone disease and musculoskeletal deformities (20 sources) Segmental and somatic dysfunction; Translations: [Segmental and somatic dysfunction of lumbar region] Onset: 02-03-2016 07-04-2016 Episodic Unclassified (14 sources) Family history of alcoholism; Translations: [Family history of alcohol abuse and dependence] 01-20-2016 Episodic Results Test Name Value Interpretation Reference Range Facil ity Vital Signs Date Time Vital Sign Value Performing Clinician Facility 09-29-2022 08:10-0400 Body height 175.3 cm Mc Alfaro PA-C Work Phone: [facility] 09-29-2022 08:10-0400 Body temperature 97.9 [degF] Mc Alfaro PA-C Work Phone: [facility] 09-29-2022 08:10-0400 Body weight 104.78 kg Mc Alfaro PA-C Work Phone: [facility] 09-29-2022 08:10-0400 Diastolic blood pressure 82 mm[Hg] Mc Alfaro PA-C Work Phone: [facility] 09-29-2022 08:10-0400 Heart rate 82 /min Mc Alfaro PA-C Work Phone: [facility] 09-29-2022 08:10-0400 Respiratory rate 14 /min Mc Alfaro PA-C Work Phone: [facility] 09-29-2022 08:10-0400 SaO2% (BldA) [Mass fraction] 98 % Mc Alfaro PA-C Work Phone: [facility] 09-29-2022 08:10-0400 Systolic blood pressure 136 mm[Hg] Mc Alfaro PA-C Work Phone: [facility] 11-01-2021 08:32-0400 Body height 175.3 cm Mc Alfaro PA-C Work Phone: [facility] 11-01-2021 08:32-0400 Body temperature 96.91 [degF] Mc Alfaro PA-C Work Phone: [facility] 11-01-2021 08:32-0400 Body weight 103.87 kg Mc Alfaro PA-C Work Phone: [facility] 11-01-2021 08:32-0400 Diastolic blood pressure 68 mm[Hg] Mc Alfaro PA-C Work Phone: [facility] 11-01-2021 08:32-0400 Heart rate 64 /min Mc Alfaro PA-C Work Phone: [facility] 11-01-2021 08:32-0400 Respiratory rate 16 /min Mc Alfaro PA-C Work Phone: [facility] 11-01-2021 08:32-0400 SaO2% (BldA) [Mass fraction] 98 % Mc Alfaro PA-C Work Phone: [facility] 11-01-2021 08:32-0400 Systolic blood pressure 128 mm[Hg] Mc Alfaro PA-C Work Phone: [facility] 02-11-2017 12:52-0400 BMI (Body Mass Index) 32.93 kg/m2 Carley Ford CIVILIAN TECHNICIAN [facility] Work Phone: 02-11-2017 12:52-0400 Body Temperature 98.4 [degF] Carley Ford CIVILIAN TECHNICIAN [facility] Work Phone: 02-11-2017 12:52-0400 BP Diastolic 84 mm[Hg] Carley Ford LPN [facility] Work Phone: 02-11-2017 12:52-0400 BP Systolic 128 mm[Hg] Carley Ford CIVILIAN TECHNICIAN [facility] Work Phone: 02-11-2017 12:52-0400 Height 175.26 cm Carley Ford LPN [facility] Work Phone: 02-11-2017 12:52-0400 Pulse (Heart Rate) 60 /min Carley Vidalyazmin CIVILIAN TECHNICIAN [facility] Work Phone: 02-11-2017 12:52-0400 Respiratory Rate 14 /min Carley Vidalyazmin CIVILIAN TECHNICIAN [facility] Work Phone: 02-11-2017 12:52-0400 Weight 101.15 kg Carley Ford LPN [facility] Work Phone: 03-13-2016 09:03-0400 BMI (Body Mass Index) 37.44 kg/m2 Joy Shin DC [employer] [facility] Work Phone: 03-13-2016 09:03-0400 Height 165.1 cm Joy Aleida BROWN [employer] [facility] Work Phone: 03-13-2016 09:03-0400 Weight 102.06 kg Joy Aleida BROWN [employer] [facility] Work Phone: Encounters Encounter Date Encounter Type Care Provider Facility Start: 09-29-2022 End: 09-29-2022 Patient encounter procedure Mc Alfaro PA-C Work Phone: Urology Procedures Date Procedure Procedure Detail Performing Clinician Start: 09-29-2022 Urnls dip stick/tabl et rgnt auto w/o microscopy Mcjono Alfaro PA-C Work Phone: Start: 11-01-2021 Urnls dip stick/tabl et rgnt auto w/o microscopy Mc Alfaro PA-C Work Phone: Start: 04-16-2017 End: 04-16-2017 Chiropractic manipulative tx spinal 3-4 regions Joy Garcia Dossi DC Work Phone: Start: 04-16-2017 End: 04-16-2017 Dietary management education, guidance, and counseling Joy Shin DC Start: 04-16-2017 End: 04-16-2017 Chiropractic manipulative tx spinal 3-4 regions Joy B Dossi DC Work Phone: Start: 03-22-2017 End: 03-27-2017 Chiropractic manipulative tx spinal 3-4 regions Joy Radha Dossi DC Work Phone: Start: 03-22-2017 End: 03-27-2017 Chiropractic manipulation Joy B Dossi DC Work Phone: Start: 02-27-2017 End: 02-27-2017 Chiropractic manipulative tx spinal 3-4 regions Joy B Dossi DC Work Phone: Start: 02-27-2017 End: 02-27-2017 Chiropractic manipulation Joy B Dossi DC Work Phone: Start: 02-11-2017 End: 02-11-2017 Dietary management education, guidance, and counseling Carley Ford LPN Start: 01-18-2017 End: 01-18-2017 Chiropractic manipulative tx spinal 3-4 regions Joy B Dossi DC Work Phone: Start: 01-18-2017 End: 01-18-2017 Chiropractic manipulation Joy B Dossi DC Work Phone: Start: 12-18-2016 End: 12-18-2016 Chiropractic manipulative tx spinal 3-4 regions Joy B Dossi DC Work Phone: Start: 12-18-2016 End: 12-18-2016 Chiropractic manipulation Joy B Dossi DC Work Phone: Start: 11-30-2016 End: 11-30-2016 Chiropractic manipulative tx spinal 3-4 regions Joy B Dossi DC Work Phone: Start: 11-30-2016 End: 11-30-2016 Chiropractic manipulation Joy B Dossi DC Work Phone: Start: 07-04-2016 End: 07-04-2016 Chiropractic manipulative tx spinal 3-4 regions Joy B Dossi DC Work Phone: Start: 07-04-2016 End: 07-04-2016 Chiropractic manipulation Joy B Dossi DC Work Phone: Start: 03-13-2016 End: 03-13-2016 Chiropractic manipulative tx spinal 3-4 regions Joy B Dossi DC Work Phone: Start: 03-13-2016 End: 03-13-2016 Dietary management education, guidance, and counseling Joy Dossi DC Start: 03-13-2016 End: 03-13-2016 Chiropractic manipulation Joy B Dossi DC Work Phone: Start: 02-21-2016 End: 02-21-2016 Chiropractic manipulative tx spinal 3-4 regions Joy B Dossi DC Work Phone: Start: 02-21-2016 End: 02-21-2016 Chiropractic manipulation Joy B Dossi DC Work Phone: Start: 02-03-2016 End: 02-03-2016 Chiropractic manipulative tx spinal 1-2 regions Joy B Dossi DC Work Phone: Start: 02-03-2016 End: 02-03-2016 Ther px 1/> areas each 15 minutes massage Joy B Dossi DC Work Phone: Start: 02-03-2016 End: 02-03-2016 Chiropract manj 1-2 regions Joy B Dossi DC Work Phone: Start: 02-03-2016 End: 02-03-2016 Massage therapy Joy B Dossi DC Work Phone: Start: 01-20-2016 End: 01-20-2016 Appl modality 1/> areas elec stimj unattended Joy B Dossi DC Work Phone: Start: 01-20-2016 End: 01-20-2016 Chiropractic manipulative tx spinal 1-2 regions Joy B Dossi DC Work Phone: Start: 01-20-2016 End: 01-20-2016 Ther px 1/> areas each 15 minutes massage Joy B Dossi DC Work Phone: Start: 01-20-2016 End: 01-20-2016 Chiropract manj 1-2 regions Joy B Dossi DC Work Phone: Start: 01-20-2016 End: 01-20-2016 Electric stimulation therapy Joy B Dossi DC Work Phone: Start: 01-20-2016 End: 01-20-2016 Massage therapy Joy B Dossi DC Work Phone: Plan of Treatment Date Care Activity Detail Author Start: 07-16-2022 ADVANCE DIRECTIVE DISCUSSION ADVANCE DIRECTIVE DISCUSSION [facility] Start: 07-16-2022 DEPRESSION ASSESSMENT DEPRESSION ASSESSMENT [facility] Start: 07-16-2021 ADVANCE DIRECTIVE DISCUSSION ADVANCE DIRECTIVE DISCUSSION [facility] Start: 04-16-2017 End: 04-16-2017 Appointment Appointment [facility] Work Phone: Start: 02-27-2017 End: 02-27-2017 Appointment Appointment [facility] Work Phone: Start: 02-11-2017 End: 02-11-2017 Appointment Appointment [facility] Work Phone: Start: 01-18-2017 End: 01-18-2017 Appointment Appointment [facility] Work Phone: Start: 12-18-2016 End: 12-18-2016 Appointment Appointment [facility] Work Phone: Start: 11-30-2016 End: 11-30-2016 Follow up Appt 2x/week Follow up Appt 2x/week [facility] Work Phone: Start: 11-30-2016 End: 11-30-2016 Appointment Appointment [facility] Work Phone: Start: 11-30-2016 End: 11-30-2016 Follow up Appt 2x/week Follow up Appt 2x/week [facility] Work Phone: Start: 02-03-2016 End: 02-03-2016 Follow up Appt 2x/Month Follow up Appt 2x/Month [facility] Work Phone: Start: 02-03-2016 End: 02-03-2016 Follow up Appt 2x/Month Follow up Appt 2x/Month [facility] Work Phone: Start: 01-20-2016 End: 01-20-2016 Follow up Appt 2x/Month Follow up Appt 2x/Month [facility] Work Phone: Start: 01-20-2016 End: 01-20-2016 Follow up Appt 2x/Month Follow up Appt 2x/Month [facility] Work Phone: Start: 2006 PNEUMOCOCCAL: 65+ (1 - PCV) PNEUMOCOCCAL: 65+ (1 - PCV) [facility] Start: 2006 PNEUMOVAX AGE 65 AND OVER WITH 5YR LOOKBACK (#1) PNEUMOVAX AGE 65 AND OVER WITH 5YR LOOKBACK (#1) [facility] Start: 1991 SHINGRIX VACCINE (1 of 2) SHINGRIX VACCINE (1 of 2) [facility] Start: 1986 DIABETES SCREEN DIABETES SCREEN [facility] Start: 02-05-1960 Urine microalbumin profile DTAP,TDAP,TD (1 - Tdap) [facility] Start: 1953 Adult depression screening assessment DEPRESSION SCREENING [facility] Start: 1946 COVID-19 VACCINE (1) COVID-19 VACCINE (1) [facility] POST VOID RESIDUAL POST VOID RES IDUAL Procedures Routine Erectile dysfunction, unspecified erectile dysfunction type Ordered: 11/01/2021 [facility] Work Phone: Payers Date Payer Category Payer Medicare A[employer] MEDICARE A ETNA MEDICARE PPO [id number] 2021-Present [phone] [address] [place] [address] PPO [id number] 2021 Medicare AETNA MEDICARE A ETNA MEDICARE PPO [id number] 2021-Present [phone] [address] [place] [address] PPO [id number] Social History Date Type Detail Facility Start: 01-26-2015 End: 11-01-2021 Tobacco smoking status NHIS Never smoked tobacco [facility] Work Phone: Start: 01-26-2015 End: 11-01-2021 Tobacco use and exposure Smokeless tobacco non-user [facility] Work Phone: Start: 11-01-2021 End: 09-29-2022 Alcohol intake Current non-drinker of alcohol (finding) [facility] Start: 1940 Sex Assigned At Not on file [facility] Start: 10-22-2021 End: 11-01-2021 Exposure to SARS-CoV-2 (event) Not sure [facility] Instructions 09-29-2022 Patient Instructions Note Date & Type Note Facility 09-29-2022 Instructions Mc Alfaro PA-C - 09/29/2022 8:40 AM EDT > 1 year Appt w/ GRAYSON Flores, RICHAR ELLINGTON for annual follow-up and refills. documented in this encounter [facility] History of Present illness Narrative 09-29-2022 Mc Alfaro PA-C - 09/29/2022 8:33 AM EDTShelbie Gaspar LPN - 09/29/2022 8:08 AM EDT Note Date & Type Note Facility 09-29-2022 History of Presen t illness Narrative Images from the original note were not included. [facility] ESTABLISHED PATIENT CLINIC NOTE Some elements copied from his previous note, which have been updated where appropriate, and all reflect current medical decision making from date of this visit. 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 He said he did it himself and it didn't work We discussed IPP and I gave him Dr. Burroughs's card for Consult in [place] he will call and arrange it LUTS: No new LUTS Other symptoms: ED - yes - failed Oral and IC LABS: No results found for: HCT No results found for: PSA No results found for: TESTOST No results found for: PSA No results found for: CREAT MEDICATIONS: SYNTHROID 88 mcg tablet once daily. lisinopril (ZESTRIL, PRINIVIL) 20 mg tablet Take by mouth once daily. cholecalciferol (VITAMIN D3) 1,000 unit tab tablet Take 1,000 Units by mouth once daily. atorvastatin (LIPITOR) 40 mg tablet Take 40 mg by mouth once daily. gentian vicky 1 % soln Apply 1 application to affected area one time only. (Patient not taking: No sig reported) apixaban (ELIQUIS ORAL) Take by mouth once daily. dicyclomine (BENTYL) 20 mg tablet Take 1 tablet by mouth three times daily. (Patient not taking: Reported on 09/29/2022) aspirin, enteric coated (ASPIRIN, ENTERIC COATED) 81 mg EC tablet Take 81 mg by mouth once daily. (Patient not taking: No sig reported) PAST MEDICAL HISTORY: PAST MEDICAL HISTORY Diagnosis Date Disorder of thyroid Diverticulitis 05/16/2014 Erectile dysfunction, unspecified erectile dysfunction type Essential hypertension History of brain tumor 05/16/2011 non malignant History of stroke Hypercholesteraemia PAST SURGICAL HISTORY: PAST SURGICAL HISTORY Procedure Laterality Date CABG (3) VEIN GRAFTS & ARTERIAL GRAFT(S) 07/2017 in [place] COLONOSCOPY FLX DX W/COLLJ SPEC WHEN PFRMD 2014 IN [place] PAST SURGICAL HISTORY OF 05/2015 diverticulitis to bladder repair PAST SURGICAL HISTORY OF 2010 brain tumor removal PAST SURGICAL HISTORY OF Triple bypass surgery 4-5 years ago PAST SURGICAL HISTORY OF Left Hernia FAMILY HISTORY: FAMILY HISTORY Problem Relation Age of Onset other (Tiffany Bobs disease) Sister Ischemic Heart Disease Brother Alcohol/Drug Brother Alzheimer's Disease Brother No Known Problems Brother other (Heart condition) Brother No Known Problems Maternal Grandmother No Known Problems Maternal Grandfather Cancer Paternal Grandmother abdominal No Known Problems Paternal Grandfather SOCIAL HISTORY: Social Connections: Not on file REVIEW OF SYSTEMS: GENERAL: No fever, chills, weight loss, or fatigue. All other systems reviewed and are negative PHYSICAL EXAMINATION: Blood pressure 136/82, pulse 82, temperature 36.6 C (97.9 F), temperature source Temporal, resp. rate 14, height 175.3 cm (5' 9 ), weight 104.8 kg (231 lb), SpO2 98 %. GENERAL: WNL nutrition, no deformities, healthy appearing GENITOURINARY: MALE EXAM: Epididymis & testes: normal size, position, without masses Urethra & meatus: normal size & position w/o lesion or discharge Penis: uncircumcised, w/o plaques, lesions, masses, or deformities. PROBLEM LIST REVIEW: Yes LABS: Results for orders placed or performed in visit on 09/29/22 UA DIP, URINE (POC) Result Value Ref Range GLUCOSE UA (POCT) Negative Negative mg/dL BILIRUBIN UA (POCT) Negative Negative KETONE UA (POCT) Negative Negative mg/dL SPECIFIC GRAVITY UA (POCT) 1.025 1.005 - 1.030 HEMOGLOBIN/BLOOD UA (POCT) Negative Negative PH UA (POCT) 5.0 4.5 - 8.0 PROTEIN UA (POCT) Negative Negative mg/dL UROBILINOGEN UA (POCT) 0.2 Normal E.U./dL NITRITE UA (POCT) Negative Negative LEUKOCYTES UA (POCT) Negative Negative COLOR UA (POCT) Yellow CLARITY UA (POCT) Clear PROCEDURES: PVR: 8 ml IMAGING: IMPRESSION/PLAN: 82 year old male with 1. Erectile dysfunction, unspecified erectile dysfunction type - ICD9: 607.84, ICD10: N52.9 > IC Injections not working and would like to discuss IPP > Gave him Dr. Burroughs's Card GRAYSON Nash MT, PA-C Verified name and date of . CC Post Void Residual HPI: Lamont Becerra is a 82 year old male. The patient is here now for an appointment with GRAYSON Nash MT, PA-COV. Procedure: Explained procedure to patient and verbalizes understanding. Performed a PVR. Patient urinated and instructed to empty bladder as much as possible just prior to having PVR done using bladder ultrasound scanner. Results of scan: 8 mL The patient tolerated the procedure well. Plan: Appointment with Mc. documented in this encounter [facility] Note 11-02-2021 Addendum Note - Mc Alfaro PA-C - 11/02/2021 6:05 PM EDTTelephone Encounter - Mc Alfaro PA-C - 11/02/2021 6:03 PM EDTTelephone Encounter - Shelbie Gaspar LPN - 11/02/2021 3:46 PM EDT Note Date & Type Note Facility 11-02-2021 Miscellaneous Notes Addended by: MC ALFARO on: 11/02/2021 06:05 PM Modules accepted: SmartSet This will need called it to them I cannot ordered thorough Epic Or I can print out Rx and you fax it to them Tri-Mix Papaverine: 30 MG + Alprostadil: 20 mcg + Phentolamine: 1 MG 2-3 vials with 32 refills GRAYSON Nash, PRRICHAR Called patient- per patient the compounding pharmacy is called [facility] and phone number is [phone]. Spoke with Holli. Strength of the TRIMIX is- Papaverine: 30 MG Alprostadil: 20 mcg Phentolamine: 1 MG Shelbie Gaspar LPN Called [facility] at to request clarification on strength of Tri-Mix per Mc Alfaro's request. Spoke with Iza who reports patient not in their system. Shelbie Gaspar LPN Called [facility] at to request clarification on strength of Tri-Mix. [facility] is currently closed. Shelbie Gaspar LPN documented in this encounter [facility] Progress note 11-01-2021 Note Date & Type Note Facility 11-01-2021 Note HNO ID: [id number] Author: Mc Alfaro PA-C Service: ? Author Type: Physician Geospatial Technician Type: Progress Notes Filed: 11/01/2021 9:20 AM Note Text: PATIENT INFO: Lamont Becerra 81 year old ( ) REFERRING PROVIDER: Vinay Blackburn PCP: Vinay Blackburn MD November 01, 2021 HPI: Lamont Becerra 81 year old male is here today for discussion and evaluation of long standing impotence, he has been living in [place], [place] and now back to [place] And has bee treating it with IC injections using Tri-Mix, but unknown strength and unknown dose, we will contact compounding pharmacy in [facility] for this information And we discussed how to report uses and results via my chart for changes in dose etc. And that if he does not do this I will no long continue to give Rx. He understands verbally LUTS: Denies Other symptoms: ED - yes LABS: No results found for: TESTOST No results found for: TESTFREE No results found for: PSA No results found for: HCT MEDICATIONS: SYNTHROID 88 mcg tablet lisinopril (ZESTRIL, PRINIVIL) 20 mg tablet Take by mouth. apixaban (ELIQUIS ORAL) Take by mouth. cholecalciferol (VITAMIN D3) 1,000 unit tab tablet Take 1,000 Units by mouth once daily. atorvastatin (LIPITOR) 40 mg tablet Take 40 mg by mouth once daily. gentian vicky 1 % soln Apply 1 application to affected area one time only. dicyclomine (BENTYL) 20 mg tablet Take 1 tablet by mouth three times daily. aspirin, enteric coated (ASPIRIN, ENTERIC COATED) 81 mg EC tablet Take 81 mg by mouth once daily. PAST MEDICAL HISTORY: PAST MEDICAL HISTORY Diagnosis Date - Disorder of thyroid - Diverticulitis 05/16/2014 - Essential hypertension - History of brain tumor 05/16/2011 non malignant - History of stroke - Hypercholesteraemia PAST SURGICAL HISTORY: PAST SURGICAL HISTORY Procedure Laterality Date - CABG (3) VEIN GRAFTS AND ARTERIAL GRAFT(S) 07/2017 in [place] - COLONOSCOPY FLX DX W/COLLJ SPEC WHEN PFRMD 2013 IN [place] - PAST SURGICAL HISTORY OF 05/2015 diverticulitis to bladder repair - PAST SURGICAL HISTORY OF 2010 brain tumor removal - PAST SURGICAL HISTORY OF Triple bypass surgery 4-5 years ago - PAST SURGICAL HISTORY OF Left Hernia FAMILY HISTORY: FAMILY HISTORY Problem Relation Age of Onset - other (Tiffany Bobs disease) Sister - Ischemic Heart Disease Brother - Alcohol/Drug Brother - Alzheimer's Disease Brother - No Known Problems Brother - other (Heart condition) Brother - No Known Problems Maternal Grandmother - No Known Problems Maternal Grandfather - Cancer Paternal Grandmother abdominal - No Known Problems Paternal Grandfather Prostate Cancer: No Bladder Cancer: No Kidney Cancer: No Testis Cancer: No SOCIAL HISTORY: Social Connections: Not on file REVIEW OF SYSTEMS: GENERAL: No fever, chills, weight loss, or fatigue. ENMT: Negative CARDIOVASCULAR:NO CHEST PAIN, PALPITATIONS, ANKLE EDEMA RESPIRATORY: No chronic cough, wheezing, dyspnea, hemoptysis. GENITOURINARY: SEE HPI MUSCULOSKELETAL:NO CHRONIC BACK PAIN, ARTHRITIS, CHRONIC NECK PAIN SKIN: NO VARICOSE VEINS, RASH, ABNORMAL ITCHING HEME/LYMPH/IMMUNE:Negative for prolonged bleeding, bruising easily or swollen nodes NEUROLOGICAL: NO HEADACHES, NUMBNESS, SEIZURES, STROKE DIABETES: No All other systems reviewed and are negative PHYSICAL EXAMINATION: Blood pressure 128/68, pulse 64, temperature 36.1 ?C (96.9 ?F), temperature source Temporal, resp. rate 16, height 175.3 cm (5' 9 ), weight 103.9 kg (229 lb), SpO2 98 %. GENERAL: WNL nutrition, no deformities, healthy appearing NEURO: Awake, alert and oriented x 3 and Normal gait PSYCH: No signs of depression, anxiety, or agitation ENMT (Ear, Nose, Mouth, Throat): No masses, adenopathy, icterus. Thyroid nonpalpable RESP: NL effort, no retractions or purse-lip breathing. CV: No extremity swelling, varices, edema, pallor, erythema GASTROINTESTINAL: Soft, nontender, nondistended, no masses. HERNIAS: None SKIN: No rash, lesions No palpable lymphadenopathy MUSCULOSKELETAL: Extremities normal. No deformities, edema, clubbing or skin discoloration. GENITOURINARY: MALE EXAM: Exam NOT Indicated PROBLEM LIST REVIEW: Yes LABS: Results for orders placed or performed in visit on 11/01/21 UA DIP, URINE (POC) Result Value Ref Range GLUCOSE UA (POCT) Negative Negative mg/dL BILIRUBIN UA (POCT) Negative Negative KETONE UA (POCT) Negative Negative mg/dL SPECIFIC GRAVITY UA (POCT) 1.010 1.005 - 1.030 HEMOGLOBIN/BLOOD UA (POCT) Negative Negative PH UA (POCT) 5.0 4.5 - 8.0 PROTEIN UA (POCT) Negative Negative mg/dL UROBILINOGEN UA (POCT) 0.2 Normal E.U./dL NITRITE UA (POCT) Negative Negative LEUKOCYTES UA (POCT) Negative Negative COLOR UA (POCT) Dark yellow CLARITY UA (POCT) Clear PROCEDURES: PVR: 0 ml IMAGING: IMPRESSION/PLAN: 1. Erectile dysfunction, unspecified erectile d (more content not included)... [facility] Progress note 11-01-2021 Note Date & Type Note Facility 11-01-2021 Note HNO ID: [id number] Author: Shelbie Gaspar LPN Service: ? Author Type: ? Type: Progress Notes Filed: 11/01/2021 9:20 AM Note Text: CC Post Void Residual HPI: Lamont Becerra is a 81 year old male. The patient is here now for an appointment with GRAYSON Nash, [place], [place]. Procedure: Explained procedure to patient and verbalizes understanding. Performed a PVR. Patient urinated and instructed to empty bladder as much as possible just prior to having PVR done using bladder ultrasound scanner. Results of scan: 42 mL The patient tolerated the procedure well. Plan: Appointment with Mc. [facility] History of Present illness Narrative 11-01-2021 Mc Alfaro PA-C - 11/01/2021 8:56 AM EDTKigeraldo Gaspar LPN - 11/01/2021 8:29 AM EDT Note Date & Type Note Facility 11-01-2021 History of Presen t illness Narrative Images from the original note were not included. PATIENT INFO: Lamont Becerra 81 year old ( ) REFERRING PROVIDER: Vinay Blackburn PCP: Vinay Blackburn MD November 01, 2021 HPI: Lamont Becerra 81 year old male is here today for discussion and evaluation of long standing impotence, he has been living in [place], [place] and now back to [place] And has bee treating it with IC injections using Tri-Mix, but unknown strength and unknown dose, we will contact compounding pharmacy in [facility] for this information And we discussed how to report uses and results via my chart for changes in dose etc. And that if he does not do this I will no long continue to give Rx. He understands verbally LUTS: Denies Other symptoms: ED - yes LABS: No results found for: TESTOST No results found for: TESTFREE No results found for: PSA No results found for: HCT MEDICATIONS: SYNTHROID 88 mcg tablet lisinopril (ZESTRIL, PRINIVIL) 20 mg tablet Take by mouth. apixaban (ELIQUIS ORAL) Take by mouth. cholecalciferol (VITAMIN D3) 1,000 unit tab tablet Take 1,000 Units by mouth once daily. atorvastatin (LIPITOR) 40 mg tablet Take 40 mg by mouth once daily. gentian vicky 1 % soln Apply 1 application to affected area one time only. dicyclomine (BENTYL) 20 mg tablet Take 1 tablet by mouth three times daily. aspirin, enteric coated (ASPIRIN, ENTERIC COATED) 81 mg EC tablet Take 81 mg by mouth once daily. PAST MEDICAL HISTORY: PAST MEDICAL HISTORY Diagnosis Date Disorder of thyroid Diverticulitis 05/16/2014 Essential hypertension History of brain tumor 05/16/2011 non malignant History of stroke Hypercholesteraemia PAST SURGICAL HISTORY: PAST SURGICAL HISTORY Procedure Laterality Date CABG (3) VEIN GRAFTS & ARTERIAL GRAFT(S) 07/2017 in [place] COLONOSCOPY FLX DX W/COLLJ SPEC WHEN PFRMD 2013 IN [place] PAST SURGICAL HISTORY OF 05/2015 diverticulitis to bladder repair PAST SURGICAL HISTORY OF 2010 brain tumor removal PAST SURGICAL HISTORY OF Triple bypass surgery 4-5 years ago PAST SURGICAL HISTORY OF Left Hernia FAMILY HISTORY: FAMILY HISTORY Problem Relation Age of Onset other (Tiffany Bobs disease) Sister Ischemic Heart Disease Brother Alcohol/Drug Brother Alzheimer's Disease Brother No Known Problems Brother other (Heart condition) Brother No Known Problems Maternal Grandmother No Known Problems Maternal Grandfather Cancer Paternal Grandmother abdominal No Known Problems Paternal Grandfather Prostate Cancer: No Bladder Cancer: No Kidney Cancer: No Testis Cancer: No SOCIAL HISTORY: Social Connections: Not on file REVIEW OF SYSTEMS: GENERAL: No fever, chills, weight loss, or fatigue. ENMT: Negative CARDIOVASCULAR:NO CHEST PAIN, PALPITATIONS, ANKLE EDEMA RESPIRATORY: No chronic cough, wheezing, dyspnea, hemoptysis. GENITOURINARY: SEE HPI MUSCULOSKELETAL:NO CHRONIC BACK PAIN, ARTHRITIS, CHRONIC NECK PAIN SKIN: NO VARICOSE VEINS, RASH, ABNORMAL ITCHING HEME/LYMPH/IMMUNE:Negative for prolonged bleeding, bruising easily or swollen nodes NEUROLOGICAL: NO HEADACHES, NUMBNESS, SEIZURES, STROKE DIABETES: No All other systems reviewed and are negative PHYSICAL EXAMINATION: Blood pressure 128/68, pulse 64, temperature 36.1 C (96.9 F), temperature source Temporal, resp. rate 16, height 175.3 cm (5' 9 ), weight 103.9 kg (229 lb), SpO2 98 %. GENERAL: WNL nutrition, no deformities, healthy appearing NEURO: Awake, alert and oriented x 3 and Normal gait PSYCH: No signs of depression, anxiety, or agitation ENMT (Ear, Nose, Mouth, Throat): No masses, adenopathy, icterus. Thyroid nonpalpable RESP: NL effort, no retractions or purse-lip breathing. CV: No extremity swelling, varices, edema, pallor, erythema GASTROINTESTINAL: Soft, nontender, nondistended, no masses. HERNIAS: None SKIN: No rash, lesions No palpable lymphadenopathy MUSCULOSKELETAL: Extremities normal. No deformities, edema, clubbing or skin discoloration. GENITOURINARY: MALE EXAM: Exam NOT Indicated PROBLEM LIST REVIEW: Yes LABS: Results for orders placed or performed in visit on 11/01/21 UA DIP, URINE (POC) Result Value Ref Range GLUCOSE UA (POCT) Negative Negative mg/dL BILIRUBIN UA (POCT) Negative Negative KETONE UA (POCT) Negative Negative mg/dL SPECIFIC GRAVITY UA (POCT) 1.010 1.005 - 1.030 HEMOGLOBIN/BLOOD UA (POCT) Negative Negative PH UA (POCT) 5.0 4.5 - 8.0 PROTEIN UA (POCT) Negative Negative mg/dL UROBILINOGEN UA (POCT) 0.2 Normal E.U./dL NITRITE UA (POCT) Negative Negative LEUKOCYTES UA (POCT) Negative Negative COLOR UA (POCT) Dark yellow CLARITY UA (POCT) Clear PROCEDURES: PVR: 0 ml IMAGING: IMPRESSION/PLAN: 1. Erectile dysfunction, unspecified erectile dysfunction type > Restart IC Injections - [facility] Scrotum concerns > will address at the 3 months follow-up Follow up 3 month with GRAYSON Flores MT, PA-C for New Medication I spent a total of 40 minutes on the date of the service which included preparing to see the patient, face to face patient care, completing clinical documentation, obtaining and/or reviewing separately obtained history, performing a medically appropriate examination, counseling and educating the patient/family/caregiver, ordering medications, tests, or procedures, and care coordination. GRAYSON Nash MT, PA-C CC Post Void Residual HPI: Lamont Becerra is a 81 year old male. The patient is here now for an appointment with GRAYSON Nash MT, PA-COV. Procedure: Explained procedure to patient and verbalizes understanding. Performed a PVR. Patient urinated and instructed to empty bladder as much as possible just prior to having PVR done using bladder ultrasound scanner. Results of scan: 42 mL The patient tolerated the procedure well. Plan: Appointment with Mc. documented in this encounter [facility] Evaluation note Note Date & Type Note Facility documented in this encounter [facility] Evaluation note Note Date & Type Note Facility documented in this encounter [facility] Summary Purpose Family History No Family History Records Found Advance Directives No Advanced Directives Records Found Additional Source Comments Source Comments (unrecognize d section and content) In the event this informatio n is protected by the Federal Confidentiality of Alcohol and Drug Abuse Patient Records regulations: The Federal rules restrict any use of the information to criminally investigate or prosecute any alcohol or drug abuse patient.[facility] the event this information is protected by the Federal Confidentiality of Alcohol and Drug Abuse Patient Records regulations: The Federal rules restrict any use of the information to criminally investigate or prosecute any alcohol or drug abuse patient.[facility] the event this information is protected by the Federal Confidentiality of Alcohol and Drug Abuse Patient Records regulations: The Federal rules restrict any use of the information to criminally investigate or prosecute any alcohol or drug abuse patient.[facility] Reason for Visit (unrecogniz ed section and content) 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 This clinical summary was aggregated from multiple sources. Caution should be exercised in using it in the provision of clinical care. This summary normalizes information from multiple sources, and as a consequence, information in this document may materially change the coding, format and clinical context of patient data. In addition, data may be omitted in some cases. CLINICAL DECISIONS SHOULD BE BASED ON THE PRIMARY CLINICAL RECORDS. [facility]. provides no warranty or guarantee of the accuracy or completeness of information in this document.
== END | disposition home or self-care (01) ==
LOC: MTLAB 12:44
PROVIDERS: PCP Family Medicine; Referring Provider Family Medicine; Visit Provider Family Medicine
DX: N18.30 Chronic kidney disease, stage 3 unspecified (principal); I48.0 Paroxysmal atrial fibrillation; E03.8 Other specified hypothyroidism; R41.3 Other amnesia
CPT/HCPCS: 36415; 80053; 80061; 81002; 82570; 82607; 83735; 83970; 84100; 84156; 84439; 84443; 85025

== ENCOUNTER 2023-09-30 15:33 | Emergency (ER) | payer MEDICARE, SELFPAY ==
[2023-09-30 15:34] VITALS: BP 171/79; PULSE 93; RESP 14; TEMP 35.7; O2SAT 96; BMI 33.3
--- OUTSIDE RECORDS SUMMARY | 2023-09-30 16:04 | XMS RPT_ITS | CCD ---
Author Name Unknown Address [address] [place] [address] Organization [facility] Care Team Providers Care Edge Bonder Name Role Phone Joy Shin DC Unavailable Carley Ford LPN Unavailable [phone] Carley Ford LPN Unavailable [phone] Joy Shin DC Unavailable Vinay Blackburn Primary Care Provider Vinay Blackburn Primary Care Provider Medications Completed/Discontinued Medications Medication Drug Class(es) Dates [...] cm Mc Alfaro PA-C Work Phone: [facility] 09-29-2022 08:10-0400 Body temperature 97.9 [degF] Mc Alfaro PA-C Work Phone: [facility] 09-29-2022 08:10-0400 Body weight 104.78 kg Mc Alfaro PA-C Work Phone: [facility] 09-29-2022 08:10-0400 Diastolic blood pressure 82 mm[Hg] Mc Alfaro PA-C Work Phone: [facility] 09-29-2022 08:10-0400 Heart rate 82 /min Mc Alfaro PA-C Work Phone: [facility] 09-29-2022 08:10-0400 Respiratory rate 14 /min Mc Alfaro PA-C Work Phone: [facility] 09-29-2022 08:10-0400 SaO2% (BldA) [Mass fraction] 98 % Mc Alfaro PA-C Work Phone: [facility] 09-29-2022 08:10-0400 Systolic blood pressure 136 mm[Hg] Mc Alfaro PA-C Work Phone: [facility] 11-01-2021 08:32-0400 Body height 175.3 cm Mc Alfaro PA-C Work Phone: [facility] 11-01-2021 08:32-0400 Body temperature 96.91 [degF] Mc Alfaro PA-C Work Phone: [facility] 11-01-2021 08:32-0400 Body weight 103.87 kg Mc Alfaro PA-C Work Phone: [facility] 11-01-2021 08:32-0400 Diastolic blood pressure 68 mm[Hg] Mc Alfaro PA-C Work Phone: [facility] 11-01-2021 08:32-0400 Heart rate 64 /min Mc Alfaro PA-C Work Phone: [facility] 11-01-2021 08:32-0400 Respiratory rate 16 /min Mc Alfaro PA-C Work Phone: [facility] 11-01-2021 08:32-0400 SaO2% (BldA) [Mass fraction] 98 % Mc Alfaro PA-C Work Phone: [facility] 11-01-2021 08:32-0400 Systolic blood pressure 128 mm[Hg] Mc Alfaro PA-C Work Phone: [facility] 02-11-2017 12:52-0400 BMI (Body Mass Index) 32.93 kg/m2 Carley Ford DRAW BENCH OPERATOR [facility] Work Phone: 02-11-2017 12:52-0400 Body Temperature 98.4 [degF] Carley Ford DRAW BENCH OPERATOR [facility] Work Phone: 02-11-2017 12:52-0400 BP Diastolic 84 mm[Hg] Carley Ford LPN [facility] Work Phone: 02-11-2017 12:52-0400 BP Systolic 128 mm[Hg] Carley Ford DRAW BENCH OPERATOR [facility] Work Phone: 02-11-2017 12:52-0400 Height 175.26 cm Carley Ford LPN [facility] Work Phone: 02-11-2017 12:52-0400 Pulse (Heart Rate) 60 /min Carley Vidalyazmin DRAW BENCH OPERATOR [facility] Work Phone: 02-11-2017 12:52-0400 Respiratory Rate 14 /min Carley Vidalyazmin DRAW BENCH OPERATOR [facility] Work Phone: 02-11-2017 12:52-0400 Weight 101.15 kg Carley Ford LPN [facility] Work Phone: 03-13-2016 09:03-0400 BMI (Body Mass Index) 37.44 kg/m2 Joy Shin DC [facility] Work Phone: 03-13-2016 09:03-0400 Height 165.1 cm Joy Aleida BROWN [facility] Work Phone: 03-13-2016 09:03-0400 Weight 102.06 kg Joy Aleida BROWN [facility] Work Phone: Encounters Encounter Date Encounter [...] ADVANCE DIRECTIVE DISCUSSION ADVANCE DIRECTIVE DISCUSSION [facility] Start: 07-16-2022 DEPRESSION ASSESSMENT DEPRESSION ASSESSMENT [facility] Start: 07-16-2021 ADVANCE DIRECTIVE DISCUSSION ADVANCE DIRECTIVE DISCUSSION [facility] Start: 04-16-2017 End: 04-16-2017 Appointment Appointment [facility] Work Phone: Start: 02-27-2017 End: 02-27-2017 Appointment Appointment [facility] Work Phone: Start: 02-11-2017 End: 02-11-2017 Appointment Appointment [facility] Work Phone: Start: 01-18-2017 End: 01-18-2017 [...] PCV) PNEUMOCOCCAL: 65+ (1 - PCV) [facility] Start: 2006 PNEUMOVAX AGE 65 AND OVER WITH 5YR LOOKBACK (#1) PNEUMOVAX AGE 65 AND OVER WITH 5YR LOOKBACK (#1) [facility] Start: 1991 SHINGRIX VACCINE (1 of 2) SHINGRIX VACCINE (1 of 2) [facility] Start: 1986 DIABETES SCREEN DIABETES SCREEN [facility] Start: 02-05-1960 Urine microalbumin profile DTAP,TDAP,TD (1 - Tdap) [facility] Start: 1953 Adult depression screening assessment DEPRESSION SCREENING [facility] Start: 1946 COVID-19 VACCINE (1) COVID-19 VACCINE (1) [facility] POST VOID RESIDUAL POST VOID RES IDUAL Procedures Routine Erectile dysfunction, unspecified erectile dysfunction type Ordered: 11/01/2021 [facility] Work Phone: Payers Date Payer Category Payer Medicare AETNA MEDICARE A ETNA MEDICARE PPO [id number] 2021-Present [phone] [address] [place] [address] PPO [id number] 2021 Medicare AETNA MEDICARE A ETNA MEDICARE PPO [id number] 2021-Present [phone] [address] [place] [address] PPO [id number] Social History Date Type Detail Facility Start: 01-26-2015 End: 11-01-2021 Tobacco smoking status NHIS Never smoked tobacco [facility] Work Phone: Start: 01-26-2015 End: 11-01-2021 Tobacco use and exposure Smokeless tobacco non-user [facility] Work Phone: Start: 11-01-2021 End: 09-29-2022 Alcohol intake Current non-drinker of alcohol (finding) [facility] Start: 1940 Sex Assigned At Not on file [facility] Start: 10-22-2021 End: 11-01-2021 Exposure to SARS-CoV-2 (event) Not sure [facility] Instructions 09-29-2022 Patient Instructions Note Date & Type Note Facility 09-29-2022 Instructions Mc Alfaro PA-C - 09/29/2022 8:40 AM EDT > 1 year Appt w/ GRAYSON Flores, RICHAR ELLINGTON for annual follow-up and refills. documented in this encounter [facility] History of Present illness Narrative 09-29-2022 Mc Alfaro PA-C - 09/29/2022 8:33 AM EDTShelbie Gaspar LPN - 09/29/2022 8:08 AM EDT Note Date & Type Note Facility 09-29-2022 History of Presen t illness Narrative Images from the original note were not included. [facility] [...] him Dr. Burroughs's card for Consult in [place] he will call and arrange it LUTS: [...] VEIN GRAFTS & ARTERIAL GRAFT(S) 07/2017 in [place] COLONOSCOPY FLX DX W/COLLJ SPEC WHEN PFRMD 2014 IN [place] PAST SURGICAL HISTORY OF 05/2015 diverticulitis to [...] with Mc. documented in this encounter [facility] Note 11-02-2021 Addendum Note - Mc Alfaro [...] 2-3 vials with 32 refills GRAYSON Nash, OHRICHAR Called patient- per patient the compounding pharmacy is called [facility] and phone number is [phone]. Spoke with Holli. Strength of the TRIMIX [...] Gaspar LPN documented in this encounter [facility] Progress note 11-01-2021 Note Date & Type Note Facility 11-01-2021 Note HNO ID: [id number] Author: Mc Alfaro PA-C Service: ? Author Type: Physician Nylon Hot Wire Cutter Type: Progress Notes Filed: 11/01/2021 9:20 AM Note Text: PATIENT INFO: Lamont Becerra 81 year old ( ) REFERRING PROVIDER: Vinay Blackburn PCP: Vinay Blackburn MD November 01, 2021 HPI: Lamont Becerra 81 year old male is here today for discussion and evaluation of long standing impotence, he has been living in [place], [place] and now back to [place] And has bee treating it with IC injections using Tri-Mix, but unknown strength and unknown dose, we will contact compounding pharmacy in [facility] for this information And we discussed how [...] VEIN GRAFTS AND ARTERIAL GRAFT(S) 07/2017 in [place] - COLONOSCOPY FLX DX W/COLLJ SPEC WHEN PFRMD 2013 IN [place] - PAST SURGICAL HISTORY OF 05/2015 diverticulitis [...] unspecified erectile d (more content not included)... [facility] Progress note 11-01-2021 Note Date & Type Note Facility 11-01-2021 Note HNO ID: [id number] Author: Shelbie Gaspar LPN Service: ? Author [...] the procedure well. Plan: Appointment with Mc. [facility] History of Present illness Narrative 11-01-2021 [...] standing impotence, he has been living in [place], [place] and now back to [place] And has bee treating it with IC injections using Tri-Mix, but unknown strength and unknown dose, we will contact compounding pharmacy in [facility] for this information And we discussed how [...] VEIN GRAFTS & ARTERIAL GRAFT(S) 07/2017 in [place] COLONOSCOPY FLX DX W/COLLJ SPEC WHEN PFRMD 2013 IN [place] PAST SURGICAL HISTORY OF 05/2015 diverticulitis to [...] dysfunction type > Restart IC Injections - [facility] Scrotum concerns > will address at the [...] with Mc. documented in this encounter [facility] Evaluation note Note Date & Type Note Facility documented in this encounter [facility] Evaluation note Note Date & Type Note Facility documented in this encounter [facility] Summary Purpose Family History No Family History [...] or prosecute any alcohol or drug abuse patient.[facility] the event this information is protected by the Federal Confidentiality of Alcohol and Drug Abuse Patient Records regulations: The Federal rules restrict any use of the information to criminally investigate or prosecute any alcohol or drug abuse patient.[facility] the event this information is protected by the Federal Confidentiality of Alcohol and Drug Abuse Patient Records regulations: The Federal rules restrict any use of the information to criminally investigate or prosecute any alcohol or drug abuse patient.[facility] Reason for Visit (unrecogniz ed section and content) 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 [facility]. provides no warranty or guarantee of the accuracy or completeness of information in this document.
--- NOTE | 2023-09-30 16:53 | CT_ITS ---
STUDY: CT BRAIN WITHOUT CONTRAST REASON FOR EXAM: Male, 83 years old. confusion Individualized dose optimization techniques were used for this CT. TECHNIQUE: Transaxial CT imaging of the brain was performed without administration of intravenous contrast material. COMPARISON: None FINDINGS: There are calcifications around the carotid artery. These are noted in the cavernous carotid arteries. Craniotomy changes of the left frontal temporal bone. There is a right frontal bone rasheed hole. There is a right-sided BUS ANALYST shunt catheter. Tip resides in the midline. Normal soft tissues. 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 Overlying the left craniotomy site, there is a soft tissue mass measuring 15 mm. This may be a meningioma. There is mild cerebral atrophy with widening of the extra-axial spaces and ventricular dilatation. There are areas of decreased attenuation within the white matter tracts of the supratentorial brain, consistent with microvascular disease changes. Normal basal ganglia and thalami. Normal brainstem. There is mild cerebellar atrophy. There is no intracranial hemorrhage. There are no findings of an acute ischemic infarction. Normal visualized paranasal sinuses. ASPECTS Score for Acute Strokes: 10/10 CT/Brain/Head without Contrast IMPRESSION: There are no acute findings. No evidence for shunt malfunction. Overlying the left craniotomy site, there is a soft tissue mass measuring 15 mm. This may be a meningioma. Electronically Signed: Rylan Sebastian MD at 17:47 EDT ,
--- NOTE | 2023-09-30 16:54 | EKG12_ITS ---
Test Reason : GENERAL Blood Pressure : / mmHG Vent. Rate : 053 BPM Atrial Rate : 000 BPM P-R Int : 000 ms QRS Dur : 126 ms QT Int : 464 ms P-R-T Axes : 000 051 160 degrees QTc Int : 435 ms Atrial fibrillation with slow ventricular response Non-specific intra-ventricular conduction block T wave abnormality, consider lateral ischemia Abnormal ECG Confirmed by BLAKE CARL, MAURISIO ([id number]), associate editor ADOLFO BEARDEN ([id number]) on 10/02/2023 7:55:49 AM Referred By: Confirmed By:MAURISIO LOZANO MD
[2023-09-30 17:08] LABS: Mucous, Urine 0 SEEN /hpf (<or=2+)
--- NOTE | 2023-09-30 17:10 | EDS_ITS ---
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 Patient had the surgery performed in [place] at least a decade ago. Patient has not followed up with neurology in [place] since then. Patient travels to [place] and back with his . Apparently the patient decided to come back to [place] earlier this year by himself and he got in the car without any notification and drove himself to [place] with no plan. Family is with him and concerned that he is more confused over the last couple of months. He is not taking his medications right. He is not able to perform his ADLs secondary to confusion. They state that he does seem to sundown towards the end of the day. They are concerned he might have dementia. They brought him to his PCP the other day and he did not think he needed any further testing. Family is frustrated as they are concerned for his mental state. They state that over the last couple of months it has been a slow progressive change. This states he lives with his and his has poor memory as well but not quite as bad as his. They do not think he needs to be placed. He has not any fevers, chills, nausea, vomiting. 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 [facility] Medical History Abdominal discomfort Atherosclerotic heart disease of [place] coronary artery without angina pectoris Benign liver cyst Bilateral carotid artery stenosis Essential hypertension Facial cellulitis Heart disease Hypothyroidism Ischemic cardiomyopathy Nonrheumatic aortic (valve) stenosis with insufficiency Old myocardial infarction Paroxysmal atrial fibrillation Pure hypercholesterolemia Segmental and somatic dysfunction of cervical region Segmental and somatic dysfunction of head region Segmental and somatic dysfunction of lumbar region Segmental and somatic dysfunction of pelvic region Segmental and somatic dysfunction of thoracic region Home Medications apixaban 5 mg tablet (Eliquis) 5 mg PO BID 09/14/20 [History Last Taken Unknown] atorvastatin 20 mg tablet 20 mg PO QHS 12/21/20 [History Last Taken Unknown] levothyroxine 88 mcg tablet 88 mcg PO DAILY 12/21/20 [History Last Taken Unknown] lisinopril 20 mg tablet 20 mg PO BID 12/21/20 [History Last Taken Unknown] metoprolol succinate 25 mg tablet,extended release 24 hr 25 mg PO DAILY 12/21/20 [History Last Taken Unknown] multivitamin 1 tab PO DAILY 12/21/20 [History Last Taken Unknown] mupirocin 2 % ointment topical kit 1 applic topical BID #1 ea 02/08/21 [Rx Last Taken Unknown] Allergy/AdvReac Type Severity Reaction Status Date / Time No Known Allergies Allergy Verified 09/30/23 15:34 Family History Mother CAD (coronary artery disease) Myocardial infarction Sudden cardiac , Onset Age: 52 Brother Sudden cardiac , Onset Age: 62 Other Heart disease Surgical History History of brain surgery History of cardioversion History of coronary artery bypass graft (~07/26/17) History of hernia surgery History of partial colectomy Social History Smoking Status: Never smoker alcohol intake: never substance use type: does not use caffeine: No what type of physical activity do you participate in: walking, swimming and weight training seatbelt use: always do you feel safe at home: Yes ROS ROS ED Constitutional Constitutional ED: Denies chills, fever(s) or sweats Eyes Eyes: Denies blurry vision or change in vision ENT ENT ED: Denies ear pain or sore throat Cardiovascular Cardiovascular: Denies chest pain, palpitations or racing heartbeat Respiratory/Chest Respiratory/Chest: Denies cough, dyspnea or sputum Gastrointestinal Gastrointestinal: Denies abdominal pain, constipation, diarrhea, nausea or vomiting Genitourinary Genitourinary ED: Denies dysuria, hematuria or urinary frequency Musculoskeletal Musculoskeletal: Denies arthralgias, myalgias or neck pain Integumentary Denies abscess, Abrasions or rash Neurologic Neurologic: Denies headache(s), paresthesias or weakness Psychiatric Psychiatric: Denies anxiety, depression, suicidal ideation or suicidal thoughts Endocrine Endocrinology: Denies polydipsia or polyuria EXAM Physical Exam Const Vital Signs: 09/30/23 15:34 09/30/23 17:33 09/30/23 19:17 Temperature 96.3 F L Temperature Source Temporal Pulse Rate 93 49 L 55 L Respiratory Rate 14 18 20 H Blood Pressure 171/79 H 163/58 H 143/92 H Blood Pressure Mean 109 93 109 Pulse Ox 96 97 96 Oxygen Delivery Method Room Air Room Air Room Air Positive well nourished General Appearance ED: NAD HEENT Reports moist mucous membranes Eyes PERRL and EOMs intact bilaterally Resp normal respiratory effort and clear to auscultation bilaterally Auscultation: Negative for rales, rhonchi or wheezes Cardio regular rate and regular rhythm GI normal to inspection, nondistended, normoactive bowel sounds Extremity normal to inspection Neuro oriented x3 and CN's II-XII intact bilaterally Sensorium / Orientation: alert Motor Exam: strength 5/5 throughout Psych mental status grossly normal Skin no rashes or lesions noted and no wounds MDM MDM MDM Narrative Medical decision making narrative: Patient presenting with increasing confusion likely secondary to dementia. 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 CT brain and shuntogram will be obtained. Chest x-ray to rule out pneumonia. CBC to assess white blood cell count, hemoglobin, platelets. BMP to assess renal function, electrolytes, glucose. High-sensitivity troponin EKG to assess for cardiac dysrhythm ia/ischemia. Urinalysis to assess for UTI. CBC shows normal white blood cell count of 6.7. Hemoglobin 14.3. Platelets are low at 146. Renal function at baseline. Electrolytes are normal. High-sensitivity troponin 44. EKG shows A- fib at 53 bpm without sign ischemic change. Shuntogram interpreted by radiology as normal. I do not see any acute cardiopulmonary process on my interpretation. Urinalysis shows positive nitrites but otherwise contaminated not consistent with UTI. CT brain negative for acute findings but does show a 15 mm soft tissue mass which may be a meningioma but is unclear. In any event this is not acute. Counseled patient and family on findings. There is nothing urgent that needs to be assessed today. I will have him follow-up with her primary care and neurology. Return precautions discussed. Impression: 1. Altered mental status 2. Dementia 3. 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 Labs: Laboratory Results - last 24 hr 09/30/23 17:01 WBC 6.7 RBC 4.77 Hgb 14.3 Hct 44.2 MCV 92.7 MCH 30.0 MCHC 32.4 RDW Std Deviation 44.3 H RDW Coeff of Shag[place] 13.0 Plt Count 146 L MPV 10.7 Immature Gran % (Auto) 0.100 Neut % (Auto) 62.0 Lymph % (Auto) 22.7 [place] % (Auto) 11.8 H Eos % (Auto) 2.8 Baso % (Auto) 0.6 Absolute Neuts (auto) 4.2 Absolute Lymphs (auto) 1.52 Nucleated RBC % 0 Sodium 142 Potassium 4.5 Chloride 110 H Carbon Dioxide 27.0 Anion Gap 5 BUN 29 H Creatinine 1.40 H Estim Creat Clear Calc 47.93 Est GFR (MDRD) Af Amer 62 Est GFR (MDRD) Non-Af 52 L BUN/Creatinine Ratio 20.7 H Glucose 96 Calcium 8.9 Troponin I High Sens 44 Urine Color Yellow Urine Clarity Clear Urine pH 7.0 Ur Specific [place] 1.015 Urine Protein 30 H Urine Glucose (UA) Normal Urine Ketones 5 H Urine Occult Blood 25 H Urine Nitrite Positive H Urine Bilirubin 1 H Urine Urobilinogen 1 H Ur Leukocyte Esterase 25 H Urine RBC 0-5 SEEN Urine WBC 0-5 SEEN Ur Squamous Epith Cells 0-5 SEEN Urine Bacteria 1+ Urine Mucus 0 SEEN Radiography Diagnostic Testing: Clinical Impression(s) from Imaging Studies Brain CT 09/30/23 16:53 IMPRESSION: There are no acute findings. No evidence for shunt malfunction. Overlying the left craniotomy site, there is a soft tissue mass measuring 15 mm. This may be a meningioma. Electronically Signed: Rylan Sebastian MD at 17:47 EDT , Shuntogram 09/30/23 17:29 IMPRESSION: 1. Right-sided ventriculoperitoneal shunt appears intact. 2. No active pulmonary disease. 3. Cardiomegaly. 4. No bowel obstruction. Electronically Signed: Inderjit Judge MD at 18:30 EDT , Discharge Plan Triage Chief Complaint: Confusion ED Provider: Timothy Hawkins Dx/Rx/DC Orders Instructions: ED Confusion, ED CAREGIVER SUPPORT for DEMENTIA Prescriptions: No Action Eliquis 5 mg tablet 5 mg PO BID levothyroxine 88 mcg tablet 88 mcg PO DAILY metoprolol succinate 25 mg tablet extended release 24 hr 25 mg PO DAILY multivitamin Tablet 1 tab PO DAILY atorvastatin 20 mg tablet 20 mg PO QHS lisinopril 20 mg tablet 20 mg PO BID mupirocin 2 % ointment kit 1 applic topical BID Qty: 1 0RF Primary Care Provider: Vinay Blackburn Referrals: Vinay Blackburn MD [Primary Care Provider] - Sen Monroy MD [Non-Staff -Ordering Privileges] - 3-5 Days Disposition Disposition: Home, Self Care
[2023-09-30 17:11] LABS: Absolute Lymphocyte Count 1.52 X10^3/uL (0.83-4.51); Absolute Neutrophil Count 4.2 X10^3/uL (2.0-7.7); Basophil# 0.04 X10^3/uL; Basophil% 0.6 % (0-1); Eosinophil# 0.19 X10^3/uL; Eosinophils% 2.8 % (0-5); Hematocrit 44.2 % (40-54); Hemoglobin 14.3 g/dL (13.0-16.5); Lymphocyte # 1.52 X10^3/ul (0.83-4.51); Lymphocyte % 22.7 % (19-41); Mean Corp Hgb Conc 32.4 g/dL (32-36); Mean Corpuscular Volume 92.7 fL (80-94); Mean Platelet Vol. 10.7 fl (6.2-12.0); Monocyte# 0.79 X10^3/uL; Monocyte% 11.8 % (0-10); NRBC Flagged by Analyzer 0 % (0-5); Neutrophil # 4.16 X10^3/uL (2.7-7.7); Platelet Count 146 K/mm3 (150-450); RBC Distribution Width SD 44.3 fl (35.1-43.9); Red Blood Count 4.77 M/mm3 (4.6-6.2); White Blood Count 6.7 K/mm3 (4.4-11.0)
[2023-09-30 17:12] LABS: Color, Urine Yellow (Yellow); Glucose, Dipstick Normal (Normal); Ketone-Dipstick 5 mg/dl (Negative); Leukocyte Esterase-Dipstick 25 /ul (Negative); Nitrite-Dipstick Positive (Negative); Occult Blood-Urine 25 /ul (Negative); Protein-Dipstick 30 mg/dl (Negative); Specific Gravity, Urine 1.015 (1.002-1.030); Urine Clarity Clear (Clear); Urine Urobilinogen 1 mg/dl (Normal)
[2023-09-30 17:13] LABS: Urine Bilirubin Dipstick 1 mg/dL (Negative)
[2023-09-30 17:19] LABS: Bacteria 1+ /hpf (None Seen); Red Blood Cells-Urine 0-5 SEEN /hpf (0-5); Squamous Epithelial Cells - UA 0-5 SEEN /hpf (0-5); White Blood Cells 0-5 SEEN /hpf (0-5)
[2023-09-30 17:27] LABS: Anion Gap 5 (5-15); BUN 29 mg/dL (7-18); BUN/Creat Ratio 20.7 RATIO (10-20); Calcium,Total 8.9 mg/dL (8.5-10.1); Chloride 110 mmol/L (98-107); EST Glomerular Filtration Rate 52 mL/min (>60); Est Glom Filt Rate - Afr Amer 62 mL/min (>60); Estimated Creatinine Clearance 47.93 ml/min; Glucose 96 mg/dL (74-106); Potassium 4.5 mmol/L (3.5-5.1); Sodium Level 142 mmol/L (136-145); Troponin-I HS 44 pg/mL (3.0-78.0)
--- NOTE | 2023-09-30 17:29 | RAD_ITS ---
INDICATION: CONFUSION EXAMINATION/TECHNIQUE: X-RAY - XR Chest and Abdomen 1 View COMPARISON: FINDINGS: --Chest: LINES/DEVICES: Right-sided ventriculoperitoneal shunt which appears intact. LUNGS: No consolidation, edema or effusion. No pneumothorax. MEDIASTINUM AND CARDIOVASCULAR STRUCTURES: Cardiomegaly.. Central airways and mediastinal contour are unremarkable. Tortuous ectatic aorta. BONES AND SOFT TISSUES: Status post median sternotomy.. --Abdomen: BOWEL GAS PATTERN: Non-obstructive. No bowel or stomach distention. FREE AIR: Not assessed on a single supine view. ORGANOMEGALY: Not seen. CALCIFICATIONS: No abnormal calcifications observed. BONES AND SOFT TISSUES: Unremarkable. FOREIGN BODIES: Inferior vena cava filter. RAD/Shuntogram/Prev Placed Shunt IMPRESSION: 1. Right-sided ventriculoperitoneal shunt appears intact. 2. No active pulmonary disease. 3. Cardiomegaly. 4. No bowel obstruction. Electronically Signed: Inderjit Judge MD at 18:30 EDT ,
[2023-09-30 17:33] VITALS: BP 163/58; PULSE 49; RESP 18; O2SAT 97
[2023-09-30 19:17] VITALS: BP 143/92; PULSE 55; RESP 20; O2SAT 96
[2023-09-30 19:28] VITALS: BP 152/77; PULSE 53; RESP 26; TEMP 37.1; O2SAT 100
--- NOTE | 2023-10-01 16:35 | CASEMGMT ---
Addendum entered and electronically signed by Debbi Watkins RN 10/01/23 17:07: Return call received from Shantal with Dr. Padron's office noting pt's 's message was received and they were calling her after we got off the phone. Return call received from pt's who states they have an appointment with Dr. Padron on Sunday. Shared neurology appointment with Dr. Padron and overview of additional resources that will be sent via mail. Pt's states she has been attending the support groups at the [facility]. and that pt will not be driving again. Pt's states these will all be helpful and denies any further needs at this time. Tonya Watkins RN [facility] Original Note: RN CM: On this date, call received from a friend Tracy of pt's Sherri requesting a SW to contact pt's . This RN CM contacted pt's Sherri who expressed concerns of caring for pt. Sherri states pt is able to perform ADLs independently most of the time but that pt becomes agitated and stubborn, is difficult to redirect, and verbally aggressive at times. Sherri states their daughter took pt's keys away and pt has been very upset by this. Sherri states she called the neurologist's office and was unable to get an appointment until March and states Dr. Blackburn did not provide any referrals to assist with presented concerns. Sherri states she has contacted Dr. Padron's office to schedule a new patient appointment but had not heard back at the time of our conversation. Sherri requests assistance with obtaining an earlier neurology appointment and additional resources to assist them as she anticipates pt's memory loss and confusion will continue to worsen. Sherri states she would like pt to remain home as long as possible but states that if pt becomes physically and not just verbally aggressive she will not be able to keep him in the home. This RN CM obtained an appointment with neurologist Dr. Negrete for 12/23 at 1540. Attempted to contact Dr. Padron's office to ensure message from pt's was received and voicemail received. Message left requesting a return call. Resources were gathered including the [employer] Caregiver Support group and 05/02 hotline, [facility], [facility] home care agency list, [facility], and [facility] information. These will be mailed to pt's home. Return call attempted to pt's Sherri and voicemail received. Message left requesting a return call. Tonya Watkins RN AC
== END 2023-09-30 19:41 | disposition home or self-care (01) ==
PROVIDERS: Emergency Provider Student in an Organized Health Care Education/Training Program; PCP Family Medicine; Visit Provider Student in an Organized Health Care Education/Training Program
DX: R41.82 Altered mental status, unspecified (principal); F03.90 Unspecified dementia, unspecified severity, without behavioral disturbance, psychotic disturbance, mood disturbance, and anxiety; I48.0 Paroxysmal atrial fibrillation; I25.10 Atherosclerotic heart disease of native coronary artery without angina pectoris; I10 Essential (primary) hypertension; I25.2 Old myocardial infarction; E78.00 Pure hypercholesterolemia, unspecified; Z95.1 Presence of aortocoronary bypass graft; Z98.2 Presence of cerebrospinal fluid drainage device; Z79.01 Long term (current) use of anticoagulants; Z79.899 Other long term (current) drug therapy
CPT/HCPCS: 99283; 70450; 75809; 80048; 81001; 84484; 85025; 93005; A4216

== ENCOUNTER 2023-10-02 13:45 | Inpatient (IN) | payer MEDICARE, SELFPAY ==
[2023-10-02] VITALS (36 sets, daily range): BP systolic 52–202; BP diastolic 23–122; PULSE 39–90; RESP 14–30; TEMP 35.5–37.1; O2SAT 88–100; BMI 33.0; BMI 33.8
--- NOTE | 2023-10-02 13:50 | CT_ITS ---
STUDY: CT BRAIN WITHOUT CONTRAST REASON FOR EXAM: Male, 83 years old. unresponsive RADIATION DOSAGE (If Supplied By Facility): CTDIvol = ( 47.06 ) mGy, DLP = ( 943.26 ) mGycm TECHNIQUE: Transaxial CT imaging of the brain was performed without administration of intravenous contrast material. Individualized dose optimization techniques were used for this CT. COMPARISON: Comparison is made with prior study September 30, 2023. FINDINGS: A right-sided ventricular shunt tube is seen with the tip in the medial aspect of the left lateral ventricle. Normal soft tissue structures. Prior left frontal craniotomy. There is mild cerebral atrophy with widening of the extra-axial spaces and ventricular dilatation. There are areas of decreased attenuation within the white matter tracts of the supratentorial brain, consistent with microvascular disease changes. Stable focal encephalomalacia in the frontal lobes bilaterally more prominent on the left side. Stable slight hyperdense 2 cm soft tissue mass in the medial aspect of the left frontal lobe suggestive of possible hemangioma. Normal basal ganglia and thalami. Normal brainstem. There is mild cerebellar atrophy. There is no intracranial hemorrhage. There are no findings of an acute ischemic infarction. Atherosclerotic calcification of the cavernous portions of the internal carotid arteries bilaterally. Minimal mucosal thickening along the medial wall of the right maxillary sinus. CT/Brain/Head without Contrast IMPRESSION: Chronic involutional changes of the brain. Stable examination. Electronically Signed: Connor Garcia MD at 14:56 EDT ,
--- NOTE | 2023-10-02 13:50 | EKG12_ITS ---
Test Reason : Blood Pressure : / mmHG Vent. Rate : 067 BPM Atrial Rate : 000 BPM P-R Int : 000 ms QRS Dur : 138 ms QT Int : 472 ms P-R-T Axes : 000 119 -38 degrees QTc Int : 498 ms Normal sinus rhythm with 1st degree AVB; PVC's Right axis deviation Non-specific intra-ventricular conduction block Cannot rule out Septal infarct , age undetermined T wave abnormality, consider inferior ischemia Abnormal ECG Confirmed by Darron Miller ([id number]), desk editor ANH WELLER ([id number]) on 10/04/2023 10:55:50 AM Referred By: JOAN Confirmed By:Darron Miller
--- NOTE | 2023-10-02 13:53 | NURSING ---
1335 CODE BLUE CALLED PRIOR TO ARRIVAL
[2023-10-02] MEDS: 0.9% Normal Saline (1000mL) 1,000 ML 150 ML IV (13:58)
[2023-10-02] MEDS: Midazolam 2 MG/2 ML Syringe IV (13:58)
[2023-10-02] MEDS: 0.9% Normal Saline (500mL Bag) 500 ML 1000 ML IV (13:59)
--- NOTE | 2023-10-02 14:02 | EX.ED.CRITCA ---
HPI History of Present Illness Chief Complaint: CPR Detail of Chief Complaint: Cardiopulmonary arrest Informant: EMS Narrative Narrative: Patient presents to the emergency department after sustaining a cardiac arrest. Patient apparently was walking when he collapsed. Witnessed. light armored reconnaissance officer arrived within 2 minutes. CPR in progress. EMS was called. On EMS arrival patient had what appeared to be ventricular fibrillation and they gave him 1 shock and he developed a spontaneous rhythm afterwards with a pulse. On arrival to the emergency department he has a pulse. Wide-complex on the monitor. He has history of coronary artery disease and history of prior stroke apparently. Patient on Eliquis. [facility] Medical History Abdominal discomfort Atherosclerotic heart disease of [place] coronary artery without angina pectoris Benign liver cyst Bilateral carotid artery stenosis Essential hypertension Facial cellulitis Heart disease Hypothyroidism Ischemic cardiomyopathy Nonrheumatic aortic (valve) stenosis with insufficiency Old myocardial infarction Paroxysmal atrial fibrillation Pure hypercholesterolemia Segmental and somatic dysfunction of cervical region Segmental and somatic dysfunction of head region Segmental and somatic dysfunction of lumbar region Segmental and somatic dysfunction of pelvic region Segmental and somatic dysfunction of thoracic region Home Medications apixaban 5 mg tablet (Eliquis) 5 mg PO BID 09/14/20 [History Last Taken Unknown] levothyroxine 88 mcg tablet 88 mcg PO DAILY 12/21/20 [History Last Taken Unknown] lisinopril 20 mg tablet 20 mg PO BID 12/21/20 [History Last Taken Unknown] metoprolol succinate 25 mg tablet,extended release 24 hr 25 mg PO DAILY 12/21/20 [History Last Taken Unknown] multivitamin 1 tab PO DAILY 12/21/20 [History Last Taken Unknown] mupirocin 2 % ointment topical kit 1 applic topical BID #1 ea 02/08/21 [Rx Last Taken Unknown] atorvastatin 40 mg tablet 40 mg PO QHS 10/02/23 [History Last Taken Unknown] mv-min-vit C-ascorb At-Ajw-Tzs-herb #124 333 mg-1.7 mg chewable tablet (Airborne (ascorbate sodium)) 1 tab PO DAILY SUPPLEMENT 10/02/23 [History Last Taken Unknown] Allergy/AdvReac Type Severity Reaction Status Date / Time No Known Allergies Allergy Verified 10/02/23 14:53 Family History Mother CAD (coronary artery disease) Myocardial infarction Sudden cardiac , Onset Age: 52 Brother Sudden cardiac , Onset Age: 62 Other Heart disease Surgical History History of brain surgery History of cardioversion History of coronary artery bypass graft (~07/26/17) History of hernia surgery History of partial colectomy Social History Smoking Status: Never smoker alcohol intake: never substance use type: does not use caffeine: No what type of physical activity do you participate in: walking, swimming and weight training seatbelt use: always do you feel safe at home: Yes ROS ROS ED Review of Systems ROS Unobtainable: due to endotracheal tube, due to mental condition and other Constitutional Constitutional ED: Reports lethargy; Denies chills, fever(s), sweats or weight loss Eyes Eyes: Denies blurry vision, change in vision or diplopia ENT ENT ED: Denies rhinorrhea or sore throat Cardiovascular Cardiovascular: Reports chest pain and racing heartbeat; Denies orthopnea Respiratory/Chest Respiratory/Chest: Reports dyspnea and dyspnea on exertion; Denies cough, orthopnea or sputum Gastrointestinal Gastrointestinal: Denies abdominal pain, diarrhea, nausea or vomiting Genitourinary Genitourinary ED: Denies dysuria, hematuria or urinary frequency Musculoskeletal Musculoskeletal: Denies arthralgias, back pain, myalgias or neck pain Integumentary Denies abscess, Abrasions or rash Neurologic Neurologic: Denies headache(s) or weakness Psychiatric Psychiatric: Denies anxiety, depression or suicidal thoughts Endocrine Endocrinology: Denies polydipsia, polyphagia or polyuria Hematologic/Lymphatic Hematologic/Lymphatic: Denies easy bleeding, easy bruising or lymphadenopathy Allergic/Immunologic Allergic/Immunologic ED: Denies mouth swelling, tongue swelling or urticaria EXAM Physical Exam Narrative Exam Narrative: Patient unresponsive. Patient being ventilated through an i-gel. Const Vital Signs: 10/02/23 13:48 10/02/23 13:59 10/02/23 14:24 Temperature 98.1 F Temperature Source Temporal Pulse Rate 56 L Pulse Rate [1] 71 Respiratory Rate 21 H 23 H Respiratory Rate [1] 21 H Respiratory Pattern Blood Pressure 97/65 Blood Pressure [1] 131/71 H Blood Pressure Mean 75 Blood Pressure Position Supine Blood Pressure Location Left Arm Pulse Ox 99 Oxygen Delivery Method Ambu-Bag Oxygen Flow Rate (L/min) 15 Fraction of Inspired Oxygen (FIO2) 10/02/23 14:15 10/02/23 14:30 10/02/23 13:48 Temperature Temperature Source Pulse Rate 57 L 68 Pulse Rate [1] Respiratory Rate 20 H 23 H Respiratory Rate [1] Respiratory Pattern Normal Blood Pressure 97/65 90/68 Blood Pressure [1] Blood Pressure Mean 75 75 Blood Pressure Position Blood Pressure Location Pulse Ox 93 100 Oxygen Delivery Method Mechanical Ventilator Oxygen Flow Rate (L/min) Fraction of Inspired Oxygen (FIO2) 70 70 10/02/23 15:00 Temperature 98.8 F Temperature Source Temporal Pulse Rate 62 Pulse Rate [1] Respiratory Rate 25 H Respiratory Rate [1] Respiratory Pattern Blood Pressure 173/57 H Blood Pressure [1] Blood Pressure Mean 95 Blood Pressure Position Blood Pressure Location Pulse Ox 98 Oxygen Delivery Method Mechanical Ventilator Oxygen Flow Rate (L/min) Fraction of Inspired Oxygen (FIO2) Positive well nourished and well developed General Appearance ED: well developed and NAD HEENT Reports TM's clear and moist mucous membranes HEENT Narrative: Pupils 3 mm and sluggish bilaterally. No external evidence of trauma to his head. normocephalic and atraumatic; Negative for trauma or tenderness Tympanic Membrane ED: Yes TM's clear Eyes PERRL and EOMs intact bilaterally General Eye ED: Negative for pale conjunctiva or scleral icterus Neck no lymphadenopathy, supple and no JVD General: Negative for tenderness Chest Wall inspection of chest normal and palpation of chest normal Chest: Negative for tenderness Resp normal respiratory effort and clear to auscultation bilaterally Effort and Inspection: Negative for respiratory distress or pain with movement Auscultation: Negative for rhonchi, wheezes or diminished lung sounds Cardio regular rate, regular rhythm, S1 normal heart sound, S2 normal heart sound and no murmurs Peripheral Pulses: pulses 2+ throughout GI normal to inspection, nondistended, normoactive bowel sounds, soft to palpation, non-tender, non-distended and no masses Back/Spine no CVA tenderness and no thoracic nor lumbar tenderness Extremity normal to inspection General Extremety ED: Negative for edema General Extremity: Negative for edema Neuro oriented x3, CN's II-XII intact bilaterally, no sensory deficits noted and gait normal Sensorium / Orientation: awake, alert, oriented to person, oriented to place and oriented to time Motor Exam: strength 5/5 throughout and strength abnormal Psych mental status grossly normal Skin no rashes or lesions noted and no wounds MDM MDM MDM Narrative Medical decision making narrative: Patient presents after cardiopulmonary arrest. He currently has a pulse and blood pressure. I did order amiodarone 150 mg IV. Patient was intubated with a 7.5 ET tube easily. I gel initially removed. Discussed case with cardiology after EKG was obtained and showed wide QRS with ST elevation in V1 and V2 with ST depressions i in V3 as well as V4 and 5 and 6 with T wave inversions. Dr. Coburn will evaluate the EKG and try to review his medical history. I did order labs as well as CT scan of the brain without contrast. Chest x-ray ordered and pending. Further discussion with cardiology Dr. Coburn, after he was able to evaluate the EKGs. He does not want to take patient acutely to the [facility] given that he is on Eliquis and risk of bleeding and risk of complications. Recommended admission for stabilization and delayed heart catheterization potentially. Will obtain a scan of the patient's brain as well given the Eliquis and the collapse. Will discuss with hospitalist to evaluate patient for admission to the ICU. CT scan of the brain and C-spine interpreted by myself no evidence of intracranial hemorrhage or C-spine fractures. Official report from radiology pending. Lab Data Attestation: I reviewed the patient's lab results. Labs: Laboratory Results - last 24 hr 10/02/23 10/02/23 13:40 14:16 WBC 11.1 H RBC 4.78 Hgb 14.5 Hct 47.5 MCV 99.4 H D MCH 30.3 MCHC 30.5 L D RDW Std Deviation 46.9 H RDW Coeff of Shaggy 12.8 Plt Count 158 MPV 11.4 Immature Gran % (Auto) 4.000 H Neut % (Auto) 46.8 L Lymph % (Auto) 38.7 [place] % (Auto) 7.7 Eos % (Auto) 1.8 Baso % (Auto) 1.0 Absolute Neuts (auto) 5.2 Absolute Lymphs (auto) 4.30 Nucleated RBC % 0.4 PT Cancelled 17.3 H INR Cancelled 1.4 APTT Cancelled 25.3 Sodium 144 Potassium 3.2 L Chloride 107 Carbon Dioxide 18.0 L Anion Gap 19 H BUN 33 H Creatinine 1.94 H Estim Creat Clear Calc 34.49 Est GFR (MDRD) Af Amer 43 L Est GFR (MDRD) Non-Af 35 L BUN/Creatinine Ratio 17.0 Glucose 274 H Calcium 8.9 Troponin I High Sens 50 Radiography Diagnostic Testing: Clinical Impression(s) from Imaging Studies Brain CT 10/02/23 13:50 IMPRESSION: Chronic involutional changes of the brain. Stable examination. Electronically Signed: Connor Garcia MD at 14:56 EDT , Cervical Spine CT 10/02/23 14:29 IMPRESSION: Multilevel degenerative changes, as described above. Electronically Signed: Connor Garcia MD at 14:53 EDT , Chest X-Ray 10/02/23 14:40 IMPRESSION: Mild cardiomegaly. Minimal increased markings in the right midlung suggestive of atelectasis. The tip of the endotracheal tube is at 4.1 cm proximal to hafsa. Electronically Signed: Connor Garcia MD at 14:57 EDT , 1 view chest x-ray obtained interpreted by myself with good placement of ET tube about 2 and half centimeters above hafsa. Patient is rotated and he has some cardiomegaly with evidence of prior CABG. I question increased markings in the right lower lobe. EKG Initial EKG: Attestation: I personally reviewed and interpreted this EKG as follows: Comments: Sinus rhythm with wide-complex with ventricular rate in the 50s. Patient had ST elevation in V1 and V2 with Q waves as well as ST depression in V3 through V6 and nonspecific ST changes. Repeat EKG at 1447 shows sinus rhythm with first-degree AV block with frequent PVCs and nonspecific ST changes Critical Care Time Critical Care Time: Yes Critical care time (excluding procedures): 30-74 minutes, Including time spent:, Discussing w/Patient &/or Family/[employer], Discussing w/Consultants, Arranging Admission or Transfer and Performing Direct Patient Care at Bedside Discharge Plan Dx/Rx/DC Orders Clinical Impression: Cardiopulmonary arrest, History of CAD (coronary artery disease), Airway intubation performed without difficulty Disposition Disposition: Acute Care [facility]
--- NOTE | 2023-10-02 14:05 | ED.RN ---
updated on patients current condition.
[2023-10-02 14:08] LABS: Absolute Neutrophil Count 5.2 X10^3/uL (2.0-7.7); Basophil# 0.11 X10^3/uL; Eosinophils% 1.8 % (0-5); Hematocrit 47.5 % (40-54); Hemoglobin 14.5 g/dL (13.0-16.5); Lymphocyte % 38.7 % (19-41); Mean Corp Hgb Conc 30.5 g/dL (32-36); Mean Corpuscular Hgb 30.3 pg (27.0-32.0); Mean Corpuscular Volume 99.4 fL (80-94); Mean Platelet Vol. 11.4 fl (6.2-12.0); Monocyte# 0.86 X10^3/uL; Monocyte% 7.7 % (0-10); NRBC Flagged by Analyzer 0.4 % (0-5); Neutrophil # 5.19 X10^3/uL (2.7-7.7); Neutrophil % 46.8 % (47-70); Platelet Count 158 K/mm3 (150-450); RBC Distribution Width CV 12.8 % (11.6-14.6); RBC Distribution Width SD 46.9 fl (35.1-43.9); Red Blood Count 4.78 M/mm3 (4.6-6.2); White Blood Count 11.1 K/mm3 (4.4-11.0)
--- NOTE | 2023-10-02 14:08 | ED.RN ---
Family being brought back. Repeat EKG in process.
[2023-10-02 14:22] LABS: Anion Gap 19 (5-15); BUN 33 mg/dL (7-18); Calcium,Total 8.9 mg/dL (8.5-10.1); Chloride 107 mmol/L (98-107); Creatinine, Serum 1.94 mg/dL (0.70-1.30); EST Glomerular Filtration Rate 35 mL/min (>60); Est Glom Filt Rate - Afr Amer 43 mL/min (>60); Estimated Creatinine Clearance 34.49 ml/min; Glucose 274 mg/dL (74-106); Potassium 3.2 mmol/L (3.5-5.1); Sodium Level 144 mmol/L (136-145); Troponin-I HS 50 pg/mL (3.0-78.0)
[2023-10-02] MEDS: Amiodarone 360 MG in Dextrose 5% Viaflo Bag 192.8 ML 33.3 MG CONT INF (14:24)
--- NOTE | 2023-10-02 14:29 | CT_ITS ---
STUDY: CT CERVICAL SPINE WITHOUT CONTRAST REASON FOR EXAM: Male, 83 years old. History of fall. Unresponsive. RADIATION DOSAGE (If Supplied By Facility): CTDIvol = ( 34 ) mGy, DLP = ( 1296.04 ) mGycm TECHNIQUE: High resolution transaxial imaging was performed without contrast material. Sagittal and coronal images were reconstructed. Individualized dose optimization techniques were used for this CT. COMPARISON: None FINDINGS: An endotracheal tube is seen. An orogastric tube is seen within the esophagus. Normal craniovertebral junction. There are degenerative changes of the anterior atlantoaxial articulation. Normal odontoid process. There is straightening of the normal cervical lordosis. Normal vertebral bodies and posterior osseous elements. 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 No significant stenosis seen. C3-4: Mild degree of disc space narrowing. Facet joint osteoarthritis and hypertrophy worse on the right side. Mild degree of bilateral neural foraminal stenosis. C4-5: Facet joint osteoarthritis and hypertrophy. Mild uncovertebral arthrosis. No significant stenosis seen. C5-6: Marked degree of disc space narrowing and spondylosis. Uncovertebral arthrosis. Mild to moderate degree of bilateral neural foraminal stenosis. C6-7: Facet joint osteoarthritis and hypertrophy. Uncovertebral arthrosis. Mild degree of bilateral neural foraminal stenosis. C7-T1: Normal endplates. Normal disc height and morphology. Normal central canal and intervertebral neuroforamina. Normal visualized soft tissue structures. CT/Spine Cervical without Contras IMPRESSION: Multilevel degenerative changes, as described above. Electronically Signed: Connor Garcia MD at 14:53 EDT ,
--- NOTE | 2023-10-02 14:40 | RAD_ITS ---
STUDY: X-RAY CHEST REASON FOR EXAM: Male, 83 years old. Intubation TECHNIQUE: Single AP portable view of the chest. COMPARISON: Comparison is made with prior study September 30, 2023. FINDINGS: An endotracheal tube is seen with the tip at 4.1 cm proximal to the hafsa. A nasogastric tube is visualized with the tip in the body of the stomach. A right-sided central venous catheter seen with the tip in the right atrium. Mild increased markings in the right midlung suggestive of possible atelectasis. There is no demonstrated pleural abnormality. Sternal cerclage wires and vascular clips are present from a prior sternotomy and coronary artery bypass graft procedure (CABG). Mild cardiomegaly. Normal mediastinum and larry. Normal visualized pulmonary arteries. Normal visualized aortic arch and descending thoracic aorta. There are diffuse degenerative changes of the visualized thoracic spine. Normal visualized ribs, clavicles, and shoulders. There is no demonstrated abnormality of the visualized soft tissue structures of the upper abdomen. RAD/Chest 1 View (Portable) IMPRESSION: Mild cardiomegaly. Minimal increased markings in the right midlung suggestive of atelectasis. The tip of the endotracheal tube is at 4.1 cm proximal to hafsa. Electronically Signed: Connor Garcia MD at 14:57 EDT ,
[2023-10-02 14:44] LABS: International Normalized Ratio 1.4; Partial Thromboplast Time 25.3 Seconds (24.1-36.2); Prothrombin Time (Protime)PT. 17.3 SECONDS (11.7-14.9)
--- NOTE | 2023-10-02 14:45 | EKG12_ITS ---
Test Reason : POST ARREST Blood Pressure : / mmHG Vent. Rate : 075 BPM Atrial Rate : 000 BPM P-R Int : 000 ms QRS Dur : 130 ms QT Int : 426 ms P-R-T Axes : 000 119 -84 degrees QTc Int : 475 ms Wide QRS rhythm with occasional Premature ventricular complexes Right axis deviation Non-specific intra-ventricular conduction block Cannot rule out Septal infarct , age undetermined T wave abnormality, consider inferolateral ischemia Abnormal ECG Confirmed by Darron Miller ([id number]), development editor ANH WELLER ([id number]) on 10/04/2023 10:56:17 AM Referred By: Confirmed By:Darron Miller
--- NOTE | 2023-10-02 14:50 | HP.PCM.HOS_ITS ---
HPI - General General Date of Admission: 10/02/23 Date of Service: 10/02/23 Chief Complaint: V-fib cardiac arrest HPI Narrative REMEDIOS ARREAGA, is a 83 M who presented to [facility] ED on 10/02/2023 after having V-fib cardiac arrest in the field. Patient seen at bedside in the ED, multiple family members present. Family was with the patient when he collapsed today while walking around. Police were on the scene within about 2 minutes and initiated CPR and EMS arrived shortly after that. His initial rhythm was identified as V-fib, and he was defibrillated x 1 with conversion to sinus rhythm and return of spontaneous circulation. He had an i- gel placed in the field. On arrival to the ED, he was noted to again be in wide-complex tachycardia but did have a pulse. He was given a bolus of IV amiodarone and started on a drip with return to sinus rhythm. Did continue to have some ectopy but was much improved. ED physician also remove the i-gel and intubated the patient without issue. When I saw the patient, his BP was slightly elevated and he was starting to become more agitated. ED staff noted that he was hypotensive after starting amiodarone and being given fentanyl for sedation, so they held off on starting propofol. Since he was becoming more agitated, we started propofol in the ED with improvement in his sedation and blood pressure. Patient's , daughter, son-in-law and granddaughter were all present at the bedside. We had a fairly lengthy discussion about his medical history to this point and plans going forward with this hospitalization. Patient has a known history of CAD and had CABG x 3 done back in 2017. He initially had an EF of 25 to 30% when CABG was done, but the EF recovered to 45 to 50% by October 2018. Last saw Dr. Steele with cardiology in the office in 2020. Echo at that time showed an EF of 45%, known regional wall motion abnormalities, moderately enlarged LA, no significant valvular findings; notably there was no change from the echo in 2018. Patient also has history of removal of a benign intracranial tumor in 2010 and placement of COLLEGE COACH shunt at that time. Family notes that the patient has had progressively worsening dementia over the past 2 years or so. He has not seen a neurologist or delivery table feeder for this yet. He continues to live at home but has not recently he has not driving, not doing his finances, not cooking or cleaning for himself. He has remained fairly active but family has noticed that he has been slowing down with that as well. Patient was actually seen in the ED on 09/29 for worsening confusion at home. CT head was negative and shuntogram for his COLLEGE COACH shunt was normal. Lab workup was fairly benign. He did have known A-fib with slow ventricular response at 53 bpm, and his troponin was 44 but his EKG showed no ischemic changes. His workup otherwise was benign. ED staff attributed his mental status changed to worsening dementia and recommended that he follow-up with primary care and neurology soon for further management of his progressive dementia. With regard to his CODE STATUS, family noted that the patient had a form of a living will which said that he would not want to be on a ventilator for the rest of his life. However, did not specify anything regarding full code versus DNR status. Family was unsure of the patient's exact wishes because of his worsening dementia but because this current event could be somewhat reversible if it is an ischemic event versus secondary to cardiac arrhythmia, they wished to keep him full code for now. They were aware that the patient is very tenuous and if he was to code again and the prognosis was poor, they would be willing to consider changing him to DNR status. [facility] Medical History Abdominal discomfort Atherosclerotic heart disease of [place] coronary artery without angina pectoris Benign liver cyst Bilateral carotid artery stenosis Essential hypertension Facial cellulitis Heart disease Hypothyroidism Ischemic cardiomyopathy Nonrheumatic aortic (valve) stenosis with insufficiency Old myocardial infarction Paroxysmal atrial fibrillation Pure hypercholesterolemia Segmental and somatic dysfunction of cervical region Segmental and somatic dysfunction of head region Segmental and somatic dysfunction of lumbar region Segmental and somatic dysfunction of pelvic region Segmental and somatic dysfunction of thoracic region Home Medications apixaban 5 mg tablet (Eliquis) 5 mg PO BID 09/14/20 [History Last Taken Unknown] levothyroxine 88 mcg tablet 88 mcg PO DAILY 12/21/20 [History Last Taken Unk nown] lisinopril 20 mg tablet 20 mg PO BID 12/21/20 [History Last Taken Unknown] metoprolol succinate 25 mg tablet,extended release 24 hr 25 mg PO DAILY 12/21/20 [History Last Taken Unknown] multivitamin 1 tab PO DAILY 12/21/20 [History Last Taken Unknown] mupirocin 2 % ointment topical kit 1 applic topical BID #1 ea 02/08/21 [Rx Last Taken Unknown] atorvastatin 40 mg tablet 40 mg PO QHS 10/02/23 [History Last Taken Unknown] mv-min-vit C-ascorb Ux-Fbw-Cms-herb #124 333 mg-1.7 mg chewable tablet (Airborne (ascorbate sodium)) 1 tab PO DAILY SUPPLEMENT 10/02/23 [History Last Taken Unknown] Allergy/AdvReac Type Severity Reaction Status Date / Time No Known Allergies Allergy Verified 10/02/23 14:53 Family History Mother CAD (coronary artery disease) Myocardial infarction Sudden cardiac , Onset Age: 52 Brother Sudden cardiac , Onset Age: 62 Other Heart disease Surgical History History of brain surgery History of cardioversion History of coronary artery bypass graft (~07/26/17) History of hernia surgery History of partial colectomy Social History Smoking Status: Never smoker alcohol intake: never substance use type: does not use caffeine: No what type of physical activity do you participate in: walking, swimming and weight training seatbelt use: always do you feel safe at home: Yes ROS Review of Systems ROS Unobtainable: due to endotracheal tube Vital Signs Vital Signs Vital Signs: 10/02/23 13:48 10/02/23 13:59 10/02/23 14:24 Temperature 98.1 F Temperature Source Temporal Pulse Rate 56 L Pulse Rate [1] 71 Respiratory Rate 21 H 23 H Respiratory Rate [1] 21 H Respiratory Pattern Blood Pressure 97/65 Blood Pressure [1] 131/71 H Blood Pressure Mean 75 Blood Pressure Position Supine Blood Pressure Location Left Arm Pulse Ox 99 Oxygen Delivery Method Ambu-Bag Oxygen Flow Rate (L/min) 15 Fraction of Inspired Oxygen (FIO2) 10/02/23 14:15 10/02/23 14:30 10/02/23 13:48 Temperature Temperature Source Pulse Rate 57 L 68 Pulse Rate [1] Respiratory Rate 20 H 23 H Respiratory Rate [1] Respiratory Pattern Normal Blood Pressure 97/65 90/68 Blood Pressure [1] Blood Pressure Mean 75 75 Blood Pressure Position Blood Pressure Location Pulse Ox 93 100 Oxygen Delivery Method Mechanical Ventilator Oxygen Flow Rate (L/min) Fraction of Inspired Oxygen (FIO2) 70 70 Weight Weight: 101.6 kg Body Mass Index (BMI) 33.0 Physical Exam Const Constitutional Narrative: Intubated and sedated. Not following any commands. HEENT normocephalic and head/scalp atraumatic HEENT Narrative: Endotracheal tube in place. Eyes conjunctivae normal Chest inspection of chest normal Resp Resp Narrative: Mechanically ventilated. Mildly decreased breath sounds bilaterally throughout with crackles noted at bilateral lung bases. Cardio no murmurs and peripheral pulses 2+ throughout Cardio Narrative: A-fib, rate controlled. GI normal to inspection, nondistended, normoactive bowel sounds, soft to palpation and non-distended Extremity normal to inspection and no pedal edema Skin no rashes or lesions noted Results Lab / Micro Data 10/02/23 13:40 10/02/23 13:40 Labs: Laboratory Results - last 24 hr 10/02/23 13:40: WBC 11.1 H, RBC 4.78, Hgb 14.5, Hct 47.5, MCV 99.4 H D, MCH 30.3, MCHC 30.5 L D, RDW Std Deviation 46.9 H, RDW Coeff of Shaggy 12.8, Plt Count 158, MPV 11.4, Immature Gran % (Auto) 4.000 H, Neut % (Auto) 46.8 L, Lymph % (Auto) 38.7, Mayes % (Auto) 7.7, Eos % (Auto) 1.8, Baso % (Auto) 1.0, Absolute Neuts (auto) 5.2, Absolute Lymphs (auto) 4.30, Nucleated RBC % 0.4, PT Cancelled, INR Cancelled, APTT Cancelled, Sodium 144, Potassium 3.2 L, Chloride 107, Carbon Dioxide 18.0 L, Anion Gap 19 H, BUN 33 H, Creatinine 1.94 H, Estim Creat Clear Calc 34.49, Est GFR (MDRD) Af Amer 43 L, Est GFR (MDRD) Non-Af 35 L, BUN/Creatinine Ratio 17.0, Glucose 274 H, Calcium 8.9, Troponin I High Sens 50 10/02/23 14:16: PT 17.3 H, INR 1.4, APTT 25.3 Assessment & Plan Assessment/Plan (1) Cardiac arrest: (2) Ventricular fibrillation: (3) Acute on chronic HFrEF (heart failure with reduced ejection fraction): PLAN: Plan Patient is an 83-year-old male who presented [facility] ED on 10/02/2023 after a V-fib cardiac arrest in the field. 1. Cardiac arrest ? V-fib arrest in the field. Was witnessed, reportedly down for about 2 minutes prior to police arrival and initiation of CPR. EMS arrived shortly after police and defibrillator pads were placed in short order, with defibrillation x 1 and return of sinus rhythm and ROSC. ? Admit under inpatient status to the ICU. Vehicle Safety Inspector consulted. ED discussed with traffic control officer and was determined patient could remain here and did not need to undergo cooling after cardiac arrest. Further treatment as noted below. 2. Acute hypoxic respiratory failure ? Secondary to cardiac arrest. iGel placed in the field, then ED physician removed the iGel and intubated patient without issue. ? Initial chest x-ray in the ED showed mild cardiomegaly, minimally increased markings in right midlung, otherwise nonacute and ET tube with proper placement. Chest x-ray shortly after arrival to the ED done due to worsening oxygenation showed increasing bilateral airspace disease and concern for subcu gas in the right lateral chest wall as noted below. ? Vehicle Safety Inspector consulted as noted above. Ventilator management per traffic control officer. Treatment for suspected worsening heart failure as noted below. 3. Episode of ventricular fibrillation with ongoing ventricular tachycardia ? V-fib arrest reported by EMS with defibrillation x 1 and return of sinus rhythm. On arrival to ED, had intermittent runs of ventricular tachycardia, was given an IV bolus and infusion started with improvement and V. tach and ectopy. ? High concern that V-fib/V. tach may be secondary to ischemia as noted below. ? Cardiology consulted. Continue amiodarone drip for now. Continuous cardiac monitoring. 4. Suspected STEMI versus NSTEMI, history of CAD s/p CABG ? EKG on arrival to the ED showed wide QRS with ST elevation in V1 and V2 along with ST depressions with T wave inversions in V3 through V6. However initial troponin only 50, repeat pending; troponin notably was 44 on 09/29. ? Patient with history of CABG x 3 done in 2016. Followed with cardiology, last saw them in the office in 2020. Has been on Eliquis for A-fib but it appears he has not been on antiplatelet therapy since then for unclear reasons. ? Cardiology consulted as above. TTE on 10/01 with worsening EF and new inferior/posterior hypokinesis as noted below. Plan is to monitor patient's mental status for evidence of recovery after cardiac arrest prior to considering any invasive therapy such as a cardiac catheterization. Holding Eliquis for now as noted below for possible heart cath. Defer to cardiology for further m edication changes. Lipid panel, A1c ordered. 5. Acute on chronic systolic heart failure, history of ischemic cardiomyopathy with partially recovered ejection fraction ? TTE 10/01 showed EF 30%, moderately severe segmental systolic dysfunction in the posterior/basal region that is new from last echo in 2020. ? Previous history of EF 25 to 30% when he required CABG in 2015, with recovery of EF to 45 to 50% in 2019. Last echo in 2020 showed continued EF of 45%. ? Cardiology consulted as above. Holding home Toprol, lisinopril in setting of cardiac arrest. Further management per cardiology. 6. Concern for subcutaneous gas in the right lateral chest wall ? Noted on chest x-ray shortly after arrival to the ICU. Notably was not seen on chest x-ray 3 hours prior to that. No obvious pneumothorax seen. ? Vehicle Safety Inspector consulted as above. Appreciate further recommendations. 7. Hypotension ? Hypotensive in the ED after starting amiodarone and IV fentanyl for sedation, which then improved as sedation was decreased. Patient became more agitated shortly after arrival to the ICU and propofol was increased significantly at that time with significant worsening of hypotension and new bradycardia. ? Suspect primarily medication related but have concern for acutely worsening heart failure as noted above. Will start low-dose peripheral Levophed as needed. Appreciate cardiology and traffic control officer recommendations for further management. 8. Acute metabolic encephalopathy ? Secondary to cardiac arrest as noted above. Currently intubated and sedated. Vehicle Safety Inspector to follow and assist with SAT/SBT trials in the future. 9. Paroxysmal atrial fibrillation ? Home medications of Toprol 25 mg daily, Eliquis 5 mg twice daily. Holding both Toprol and Eliquis as noted above. 10. Concern for worsening dementia with mild debility ? Recent ED visit on 09/29 for worsening confusion, see HPI for further details. Suspected that patient has worsening dementia and family was planning to see neurology in the office in the near future. PT/OT/case management consulted. Chronic medical conditions: ? Obesity: BMI 33 on admit. Complicates hospital course, care and prognosis. ? Hypothyroidism: TSH ordered. Continue home Synthroid. ? Hypertension: Holding home Toprol and lisinopril as noted above. ? Hyperlipidemia: Continue home statin. ? History of benign brain tumor s/p resection with COLLEGE COACH shunt placement: Recent CT head without contrast and shuntogram on 09/29 were normal. DVT prophylaxis: SCDs CODE STATUS: Full code, verified. See bottom of HPI above for further details regarding CODE STATUS discussion. Expected disposition: TBD Total clinical time spent by myself addressing the patient's medical issues, reviewing all the data, and collaborating with patient's care team: 75 minutes. Charges/Coding Visit Charges Inpatient E&M: 60930 Init Hosp L3
[2023-10-02] MEDS: fentaNYL drip 100 ML 2.5 MCG CONT INF (15:01)
--- NOTE | 2023-10-02 15:25 | CASEMGMT ---
Emergency Department Aoc Director Intelligence Officer Sw presented to Emergency Department for Code Blue. Upon arrival to ED patient was brought in by EMS and taken to bay where he was being worked on by ED staff. It was noted at that time that patient has a rhythm. Sw then met with family who was present in waiting area: pt's , Sherri and daughter Brittany. Sw introduced self, utilized active listening and provided ongoing support and empathy. Family discussed ongoing medical concerns that they have been experiencing with patient (reference note entered by RN Debbi Sotomayor). Family at this time expressing concern for patient not being able to return home with the cognitive concerns they are witnessing. Family also has safety concerns due to patient leaving the home without plan, getting confused and lost, arguing with family and becoming angry. Pt's states that she is medical power of estate attorney and is receptive to SNF placement when patient is ready for dc. Gaston Marinelli, TRANSPLANTER ORCHID, ANCHORER
--- NOTE | 2023-10-02 15:26 | ECHOCS_ITS ---
Reason For Study: CAD/ASHD Procedure This was a 2D Doppler, Color Flow transthoracic echocardiogram. The study was technically limited. The study was technically difficult. Contrast injection was performed. Exam performed supine due to ventilator and IV lines. Exam performed portable in ICU/CCU. Left Ventricle Normal LV size. Mild concentric left ventricular hypertrophy. The left ventricular ejection fraction is 30 %. Moderately severe segmental systolic dysfunction (see wall motion). Posterior-Basal: Severely hypokinetic. Mid-Posterior: Severely Hypokinetic. Right Ventricle Normal RV size. Normal systolic function. Atria The left atrium is moderately enlarged. Great Vessels Normal aortic root. Pericardium/Pleural No pericardial effusion. MMode/2D Measurements & Calculations LVIDd: 5.4 cm IVSd: 1.2 cm LVOT diam: 2.2 cm LVIDs: 4.8 cm LVPWd: 1.3 cm FS: 12.0 % LVOT area: 3.9 cm2 LAV(MOD-sp4): 119.6 ml LA dimension(2D): 4.1 cm LA A4 area: 30.6 cm2 Time Measurements MV dec time: 0.20 sec Doppler Measurements & Calculations MV E max [place]: 111.9 cm/sec Lat Peak E' [place]: 12.4 cm/sec MV V2 max: 129.7 cm/sec MV A max [place]: 18.2 cm/sec E/E' lat: 9.0 MV max P.7 mmHg MV E/A: 6.1 MV V2 mean: 58.8 cm/sec MV mean P.8 mmHg MV V2 VTI: 33.0 cm MVA(VTI): 2.0 cm2 Ao V2 max: 206.6 cm/sec LV V1 max: 100.3 cm/sec SV(LVOT): 64.7 ml Ao max P.1 mmHg LV V1 max P.0 mmHg Ao V2 mean: 152.4 cm/sec LV V1 mean P.1 mmHg Ao mean P.1 mmHg LV V1 mean: 68.8 cm/sec Ao V2 VTI: 43.6 cm LV V1 VTI: 16.4 cm AV (velocity ratio): 0.38 NEGRO(I,D): 1.5 cm2 NEGRO(V,D): 1.9 cm2 PA V2 max: 90.8 cm/sec PA V2 mean: 63.5 cm/sec ECHO/Echo Complete W/ Contrast Interpretation Summary Normal LV size. The left ventricular ejection fraction is 30 %. Mild concentric left ventricular hypertrophy. Moderately severe segmental systolic dysfunction (see wall motion). Contrast injection was performed. Ordering Physician: Moi Mo Referring Physician: Vinay Blackburn Performed By: Iza Ambrosio, JHON, RVT
--- NOTE | 2023-10-02 15:29 | NURSING ---
ICU MOSTELLER CPR, INTUBATION, HX OF CAD
--- NOTE | 2023-10-02 15:33 | MDS.RN ---
Report called to ICU
[2023-10-02] MEDS: Propofol 10MG/Ml 1,000 MG/100 ML Bottle 6.1 MG CONT INF ×2 (15:39→21:28)
[2023-10-02 15:59] LABS: Magnesium 2.3 mg/dL (1.6-2.6); Thyroid Stim Hormone (TSH) 6.62 uIU/mL (0.358-3.74)
[2023-10-02] MEDS: Potassium Chloride 10mEq/100mL 10 MEQ/100 ML IV.SOLN. 100 MEQ IV BOLUS ×4 (16:14→20:19)
[2023-10-02 16:54] LABS: CPK Total, Creatine Kinase 233 U/L (39-308); Triglycerides 233 mg/dL
--- NOTE | 2023-10-02 17:20 | RAD_ITS ---
STUDY: X-RAY CHEST REASON FOR EXAM: Male, 83 years old. worsening hypoxia TECHNIQUE: Single frontal view of the chest. COMPARISON: Chest x-ray October 02, 2023 FINDINGS: ET and enteric tubes unchanged. Sternotomy wires again noted. Right BASKET PERSON shunt noted. Increasing bilateral airspace disease. There is no demonstrated pleural abnormality. Normal size heart. Normal mediastinum and larry. Normal visualized pulmonary arteries. Normal visualized aortic arch and descending thoracic aorta. Normal visualized thoracic spine. Normal visualized ribs, clavicles, and shoulders. Possible subcutaneous gas right lateral chest wall. There is no demonstrated abnormality of the visualized soft tissue structures of the upper abdomen. RAD/Chest 1 View (Portable) IMPRESSION: Increasing bilateral airspace disease.. Possible new subcutaneous gas right lateral chest wall. No pneumothorax noted. Electronically Signed: Sumit Livingston MD at 19:26 EDT ,
--- NOTE | 2023-10-02 18:17 | CON.PCM.CA_ITS ---
Assessment & Plan Assessment/Plan (1) Cardiopulmonary arrest: PLAN: He is status post witnessed cardiopulmonary arrest. At this time he appears to be intubated and it is not clear what the state of mentation is. He does have adequate blood pressure as well as heart rate and his echocardiogram demonstrated reduced ejection fraction of 30%. I did explain to the family that we will need to see the state of recovery of mental function before resorting to any invasive therapy such as a cardiac catheterization. They did express under standing at this time. I also did suggest to the family that they should consider what intervention is required if he should go into a further cardiac dysrhythmia. In the meantime he will remain on intravenous amiodarone. (2) Ischemic cardiomyopathy: PLAN: He does have evidence of ischemic cardiomyopathy with his estimated ejection fraction now at approximately 30% with inferior posterior hypokinesis noted. This may be evaluated at a later date. (3) History of coronary artery bypass graft: PLAN: He is status post coronary bypass graft surgery. He is almost 8 years post bypass surgery. Depending on his recovery of mental function this may need to be reevaluated. (4) Paroxysmal atrial fibrillation: PLAN: He does have a history of atrial fibrillation is on Eliquis at this time he is maintaining sinus rhythm currently. His Eliquis will be on hold for the meantime pending improvement in his mental function. (5) Essential hypertension: PLAN: His blood pressure appears to be adequate at this particular time I would not recommend we make any major changes. Thank you for allowing me to participate in the care of your patient. Please don't hesitate to call if any issues arise. HPI Consult Data Date of Consult: 10/02/23 HPI Narrative HPI Narrative: REMEDIOS ARREAGA, is a 83 M who presents to the emergency room after a witnessed cardiac arrest. According to his he has had some dementia and over the weekend he had his car keys taken away from him. He decided that he was going to walk over to [facility] today and as he was walking by [place] he apparently collapsed. This was witnessed and the police arrived within 5 minutes and administered CPR emergency medical squad noted that he was in ventricular fibrillation when they arrived he received 1 shock and CPR was brought to the emergency room where he was intubated administered intravenous amiodarone. Cardiology was called for further evaluation and management. He did have a pulse and blood pressure and was noted to have frequent premature ventricular complexes. It was not clear what his state of mentation is and so it was decided to have him observed in the ICU rather than taking him directly to the cardiac catheterization laboratory. He does have a history of coronary disease status post coronary bypass surgery in 2018, ischemically mediated cardiomyopathy, atrial fibrillation status post radiofrequency ablation, hyperlipidemia, hypertension. He has not had any cardiac follow-up in over 3 years. His last estimated ejection fraction was noted to be 45 to 50% on an echocardiogram. In July 2017 he had a WILKERSON to the LAD, saphenous vein graft to obtuse marginal branch, and saphenous vein graft to the posterior descending artery. It is not clear whether he has had any compliance with his medications. 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 Benign liver cyst Bilateral carotid artery stenosis Essential hypertension Facial cellulitis Heart disease Hypothyroidism Ischemic cardiomyopathy Nonrheumatic aortic (valve) stenosis with insufficiency Old myocardial infarction Paroxysmal atrial fibrillation Pure hypercholesterolemia Segmental and somatic dysfunction of cervical region Segmental and somatic dysfunction of head region Segmental and somatic dysfunction of lumbar region Segmental and somatic dysfunction of pelvic region Segmental and somatic dysfunction of thoracic region Home Medications apixaban 5 mg tablet (Eliquis) 5 mg PO BID 09/14/20 [History Last Taken Unknown] levothyroxine 88 mcg tablet 88 mcg PO DAILY 12/21/20 [History Last Taken Unknown] lisinopril 20 mg tablet 20 mg PO BID 12/21/20 [History Last Taken Unknown] metoprolol succinate 25 mg tablet,extended release 24 hr 25 mg PO DAILY 12/21/20 [History Last Taken Unknown] multivitamin 1 tab PO DAILY 12/21/20 [History Last Taken Unknown] mupirocin 2 % ointment topical kit 1 applic topical BID #1 ea 02/08/21 [Rx Last Taken Unknown] atorvastatin 40 mg tablet 40 mg PO QHS 10/02/23 [History Last Taken Unknown] mv-min-vit C-ascorb Wx-Voe-Zip-herb #124 333 mg-1.7 mg chewable tablet (Airborne (ascorbate sodium)) 1 tab PO DAILY SUPPLEMENT 10/02/23 [History Last Taken Unknown] Allergy/AdvReac Type Severity Reaction Status Date / Time No Known Allergies Allergy Verified 10/02/23 14:53 Family History Mother CAD (coronary artery disease) Myocardial infarction Sudden cardiac , Onset Age: 52 Brother Sudden cardiac , Onset Age: 62 Other Heart disease Surgical History History of brain surgery History of cardioversion History of coronary artery bypass graft (~07/26/17) History of hernia surgery History of partial colectomy Social History Smoking Status: Never smoker alcohol intake: never substance use type: does not use caffeine: No what type of physical activity do you participate in: walking, swimming and weight training seatbelt use: always do you feel safe at home: Yes Physical Exam Const alert, oriented x3 and no apparent distress General Appearance: cooperative HEENT hearing grossly normal bilaterally Head and Scalp: atraumatic Eyes EOMs intact bilaterally Neck General: normal visual inspection Chest inspection of chest normal and palpation of chest normal Resp normal respiratory effort Auscultation: clear to auscultation bilaterally Cardio regular rate, regular rhythm, S1 normal heart sound and S2 normal heart sound Jugular Venous Distention: JVD GI normal to inspection, nondistended, normoactive bowel sounds Extremity normal capillary refill and no pedal edema Peripheral Pulses: Yes pulses 2+ throughout and femoral pulses present Skin no rashes or lesions noted Neuro oriented x3 and CN's II-XII intact bilaterally Psych Appearance: grossly normal and appropriate Risk Stratification Risk Stratification Applicable: No Objective Data Vital Signs: Vital Signs Temp Pulse Resp BP Pulse Ox O2 Del Method O2 Flow Rate 96.0 F L 90 30 H 160/76 H 100 Mechanical Ventilator 10/02/23 16:15 10/02/23 17:25 10/02/23 17:25 10/02/23 16:15 10/02/23 17:25 10/02/23 16:29 10/02/23 13:48 FiO2 50 10/02/23 17:25 Oxygen Flow Rate (L/min) 15 Oxygen Delivery Method Mechanical Ventilator Weight: 228 lb 9.91 oz Body Mass Index (BMI) 33.8 Intake & Output: Intake and Output for Last 24 Hours 09/30/23 10/01/23 10/02/23 23:59 23:59 23:59 Intake Total 1261.95 / 1261.95 Balance 1261.95 / 1261.95 Lab / Micro Data 10/02/23 13:40 10/02/23 13:40 Labs: Laboratory Results - last 24 hr 10/02/23 13:40: WBC 11.1 H, RBC 4.78, Hgb 14.5, Hct 47.5, MCV 99.4 H D, MCH 30.3, MCHC 30.5 L D, RDW Std Deviation 46.9 H, RDW Coeff of Shaggy 12.8, Plt Count 158, MPV 11.4, Immature Gran % (Auto) 4.000 H, Neut % (Auto) 46.8 L, Lymph % (Auto) 38.7, [place] % (Auto) 7.7, Eos % (Auto) 1.8, Baso % (Auto) 1.0, Absolute Neuts (auto) 5.2, Absolute Lymphs (auto) 4.30, Nucleated RBC % 0.4, PT Cancelled, INR Cancelled, APTT Cancelled, Sodium 144, Potassium 3.2 L, Chloride 107, Carbon Dioxide 18.0 L, Anion Gap 19 H, BUN 33 H, Creatinine 1.94 H, Estim Creat Clear Calc 34.49, Est GFR (MDRD) Af Amer 43 L, Est GFR (MDRD) Non-Af 35 L, BUN/Creatinine Ratio 17.0, Glucose 274 H, Calcium 8.9, Magnesium 2.3, Total Creatine Kinase 233, Troponin I High Sens 50, Triglycerides 233 H, TSH 6.62 H 10/02/23 14:16: PT 17.3 H, INR 1.4, APTT 25.3 Cardiology Labs/Tests 10/02/23 13:40: WBC 11.1 H, RBC 4.78, Hgb 14.5, Hct 47.5, MCV 99.4 H D, MCH 30 .3, MCHC 30.5 L D, Plt Count 158, MPV 11.4, Immature Gran % (Auto) 4.000 H, Neut % (Auto) 46.8 L, Lymph % (Auto) 38.7, [place] % (Auto) 7.7, Eos % (Auto) 1.8, Baso % (Auto) 1.0, Absolute Neuts (auto) 5.2, Nucleated RBC % 0.4, PT Cancelled, INR Cancelled, APTT Cancelled, Sodium 144, Potassium 3.2 L, Chloride 107, Carbon Dioxide 18.0 L, Anion Gap 19 H, BUN 33 H, Creatinine 1.94 H, Est GFR (MDRD) Af Amer 43 L, Est GFR (MDRD) Non-Af 35 L, BUN/Creatinine Ratio 17.0, Glucose 274 H, Calcium 8.9, Magnesium 2.3, Triglycerides 233 H 10/02/23 14:16: PT 17.3 H, INR 1.4, APTT 25.3 Rhythm: EKG: ECHO: Stress Test: Cardiac Cath: PCI: CT Surgery: Holter monitor: EPS: PPM: CXR: Chest CT Scan: Radiography Diagnostic Testing: Radiology Impression Brain CT 10/02/23 13:50 IMPRESSION: Chronic involutional changes of the brain. Stable examination. Electronically Signed: Connor Garcia MD at 14:56 EDT , Cervical Spine CT 10/02/23 14:29 IMPRESSION: Multilevel degenerative changes, as described above. Electronically Signed: Connor Garcia MD at 14:53 EDT , Chest X-Ray 10/02/23 14:40 IMPRESSION: Mild cardiomegaly. Minimal increased markings in the right midlung suggestive of atelectasis. The tip of the endotracheal tube is at 4.1 cm proximal to hafsa. Electronically Signed: Connor Garcia MD at 14:57 EDT , Echocardiogram 10/02/23 15:26 Interpretation Summary Normal LV size. The left ventricular ejection fraction is 30 %. Mild concentric left ventricular hypertrophy. Moderately severe segmental systolic dysfunction (see wall motion). Contrast injection was performed. Ordering Physician: Moi Mo Referring Physician: Vinay Blackburn Performed By: Iza Ambrosio RDCS, RVT
[2023-10-02] MEDS: Norepinephrine 8 MG in 0.9% Normal Saline (250mL Bag) 242 ML 9.4 MG CONT INF (18:46)
[2023-10-02 19:00] LABS: Cholesterol 120 mg/dL (200); High Density Lipoprotein 39 mg/dL; Triglycerides 232 mg/dL; Very Low Density Lipoprotein 46 mg/dL (5-40)
[2023-10-02 19:19] LABS: Hemoglobin A1c 5.8 % (3.8-5.6)
--- NOTE | 2023-10-02 19:50 | PCM.HOSP.N ---
Hospitalist Note Patient family/POA asked to change his code status to DNR-CCA, with intubation. Code status changed in the orders and form signed.
[2023-10-02] MEDS: Amiodarone 360 MG in Dextrose 5% Viaflo Bag 192.8 ML 16.7 MG CONT INF (20:31)
[2023-10-02] MEDS: Chlorhexidine 15 ML PO (21:28)
[2023-10-02] MEDS: Atorvastatin Calcium 40 MG Tablet GT (21:28)
[2023-10-02] MEDS: 0.9% Saline Lock 10 ML Syringe IV (21:28)
--- NOTE | 2023-10-02 22:13 | EKG12_ITS ---
Test Reason : ABNORMAL RHYTHM Blood Pressure : / mmHG Vent. Rate : 041 BPM Atrial Rate : 000 BPM P-R Int : 000 ms QRS Dur : 120 ms QT Int : 596 ms P-R-T Axes : 000 112 071 degrees QTc Int : 491 ms Marked Sinus Bradycardia 1st Degree AVB Cannot rule out Lateral infarct , age undetermined Cannot rule out Inferior infarct , age undetermined Abnormal ECG Confirmed by Darron Miller ([id number]), writer editor ANH WELLER ([id number]) on 10/05/2023 6:24:14 AM Referred By: HARVEY Confirmed By:Darron Miller
--- NOTE | 2023-10-02 22:15 | EKG12_ITS ---
Test Reason : ABNORMAL RHYTHM Blood Pressure : / mmHG Vent. Rate : 041 BPM Atrial Rate : 041 BPM P-R Int : 648 ms QRS Dur : 122 ms QT Int : 602 ms P-R-T Axes : 000 112 070 degrees QTc Int : 496 ms Marked sinus bradycardia with 1st degree A-V block Cannot rule out Lateral infarct , age undetermined Cannot rule out Inferior infarct , age undetermined Abnormal ECG Confirmed by Darron Miller ([id number]), editor managing director ANH WELLER ([id number]) on 10/05/2023 6:23:34 AM Referred By: HARVEY Confirmed By:Darron Miller
--- NOTE | 2023-10-02 23:00 | RAD_ITS ---
STUDY: X-RAY CHEST REASON FOR EXAM: Male, 83 years old. PICC LINE PLACEMENT TECHNIQUE: Single frontal view of the chest. COMPARISON: 5:17 PM FINDINGS: New PICC line on the right terminates in the superior vena cava. NOVELTY CH[employer]KER shunt on the right. Sternotomy wires again noted. ET and enteric tubes unchanged. Increased subcutaneous gas right lateral chest wall. No pneumothorax noted. Increasing right lower lobe airspace disease. There is no demonstrated pleural abnormality. Normal size heart. Normal mediastinum and larry. Normal visualized pulmonary arteries. Normal visualized aortic arch and descending thoracic aorta. Normal visualized thoracic spine. Normal visualized ribs, clavicles, and shoulders. There is no demonstrated abnormality of the visualized soft tissue structures of the upper abdomen. RAD/CXR for Line Placement IMPRESSION: New PICC line on the right terminates in the superior vena cava. Subcutaneous gas is increased right lateral chest wall. Clinical correlation required. No pneumothorax noted. Increasing right lower lobe airspace disease. Electronically Signed: Sumit Livingston MD at 0:07 EDT ,
--- NOTE | 2023-10-02 23:30 | NURSING ---
Contacted [employer] due to change in pt's code status. Per Reynaldo with [employer], pt does not meet criteria for organ/tissue donation in the event care is withdrawn, therefore [employer] is signing off.
[2023-10-03] VITALS (42 sets, daily range): BP systolic 60–176; BP diastolic 23–103; PULSE 40–72; RESP 14–26; TEMP 35.7–36; O2SAT 53–98; BMI 34.3
[2023-10-03] MEDS: 0.9% Saline Lock 10 ML Syringe IV ×6 (01:23→11:43)
[2023-10-03] MEDS: fentaNYL drip 100 ML 10 MCG CONT INF (01:23)
[2023-10-03] MEDS: Norepinephrine 8 MG in 0.9% Normal Saline (250mL Bag) 242 ML 46.9 MG CONT INF ×2 (03:04→10:00)
--- NOTE | 2023-10-03 03:07 | EKG12_ITS ---
Test Reason : Blood Pressure : / mmHG Vent. Rate : 060 BPM Atrial Rate : 000 BPM P-R Int : 000 ms QRS Dur : 122 ms QT Int : 480 ms P-R-T Axes : 000 100 030 degrees QTc Int : 480 ms Normal sinus rhythm with 1st degree INDUSTRIAL ROOFER Rightward axis Non-specific intra-ventricular conduction delay Nonspecific ST abnormality Abnormal ECG Confirmed by Darron Miller ([id number]), publishing editor ANH WELLER ([id number]) on 10/04/2023 10:57:14 AM Referred By: JOAN Confirmed By:Darron Miller
[2023-10-03 04:20] LABS: Hematocrit 40.4 % (40-54); Hemoglobin 12.9 g/dL (13.0-16.5); Mean Corp Hgb Conc 31.9 g/dL (32-36); Mean Corpuscular Hgb 30.2 pg (27.0-32.0); Mean Corpuscular Volume 94.6 fL (80-94); Mean Platelet Vol. 10.9 fl (6.2-12.0); Platelet Count 178 K/mm3 (150-450); RBC Distribution Width CV 13.2 % (11.6-14.6); Red Blood Count 4.27 M/mm3 (4.6-6.2); White Blood Count 17.3 K/mm3 (4.4-11.0)
[2023-10-03 04:39] LABS: Anion Gap 9 (5-15); BUN 50 mg/dL (7-18); BUN/Creat Ratio 19.1 RATIO (10-20); Calcium,Total 7.7 mg/dL (8.5-10.1); Chloride 111 mmol/L (98-107); Creatinine, Serum 2.62 mg/dL (0.70-1.30); EST Glomerular Filtration Rate 25 mL/min (>60); Est Glom Filt Rate - Afr Amer 30 mL/min (>60); Estimated Creatinine Clearance 25.37 ml/min; Glucose 211 mg/dL (74-106); Potassium 6.2 mmol/L (3.5-5.1); Sodium Level 141 mmol/L (136-145)
--- NOTE | 2023-10-03 04:47 | PCM.HOSP.N ---
Hospitalist Note AM repeat labs with potassium 6.2, not noted to be hemolyzed. Will initiate hyperkalemic protocol with Kayexalate, insulin, dextrose, calcium, albuterol with repeat timed BMP.
[2023-10-03] MEDS: Albuterol 2.5 MG/3 ML VIAL.NEB. 10 MG INHALATION (05:02)
[2023-10-03] MEDS: Dextrose 50%-Water 25 GM/50 ML DISP.SYRIN IV (05:10)
[2023-10-03] MEDS: Insulin Lispro 10 UNIT in Syringe 0 ML 6 UNIT IV (05:10)
[2023-10-03] MEDS: Levothyroxine 88 MCG Tablet GT (05:10)
[2023-10-03] MEDS: Sodium Polystyrene Sulfonate 15 GM/60 ML UDC PO (05:10)
[2023-10-03] MEDS: Calcium Gluconate 1 GM/10 ML Vial IVP (05:10)
[2023-10-03] MEDS: Propofol 10MG/Ml 1,000 MG/100 ML Bottle 15.2 MG CONT INF (05:11)
--- NOTE | 2023-10-03 07:12 | PN.CARD_ITS ---
Subjective Subjective Patient seen and evaluated. Status quo ante. No significant arrhythmias noted overnight Objective Data Vital Signs: Vital Signs Temp Pulse Resp BP Pulse Ox O2 Del Method O2 Flow Rate 96.8 F L 53 L 14 115/57 L 94 Mechanical Ventilator 50 10/03/23 04:00 10/03/23 06:00 10/03/23 06:00 10/03/23 06:00 10/03/23 06:00 10/03/23 06:00 10/03/23 00:00 FiO2 40 10/03/23 06:00 Oxygen Flow Rate (L/min) 50 Oxygen Delivery Method Mechanical Ventilator Weight: 231 lb 14.821 oz Body Mass Index (BMI) 34.3 Intake & Output: Intake and Output for Last 24 Hours 10/01/23 10/02/23 10/03/23 23:59 23:59 23:59 Intake Total 1945.50 / 1973.98 467.77 / 467.77 Output Total 50 / 50 Balance 194.50 / 1973.98 417.77 / 417.77 Lab / Micro Data 10/03/23 04:00 10/03/23 04:00 Labs: Laboratory Results - last 24 hr 10/02/23 13:40: WBC 11.1 H, RBC 4.78, Hgb 14.5, Hct 47.5, MCV 99.4 H D, MCH 30.3, MCHC 30.5 L D, RDW Std Deviation 46.9 H, RDW Coeff of Shaggy 12.8, Plt Count 158, MPV 11.4, Immature Gran % (Auto) 4.000 H, Neut % (Auto) 46.8 L, Lymph % (Auto) 38.7, [place] % (Auto) 7.7, Eos % (Auto) 1.8, Baso % (Auto) 1.0, Absolute Neuts (auto) 5.2, Absolute Lymphs (auto) 4.30, Nucleated RBC % 0.4, PT Cancelled, INR Cancelled, APTT Cancelled, Sodium 144, Potassium 3.2 L, Chloride 107, Carbon Dioxide 18.0 L, Anion Gap 19 H, BUN 33 H, Creatinine 1.94 H, Estim Creat Clear Calc 34.49, Est GFR (MDRD) Af Amer 43 L, Est GFR (MDRD) Non-Af 35 L, BUN/Creatinine Ratio 17.0, Glucose 274 H, Hemoglobin A1c 5.8 H, Calcium 8.9, Magnesium 2.3, Total Creatine Kinase 233, Troponin I High Sens 50, Triglycerides 233 H 10/02/23 13:40: Triglycerides 232 H, Cholesterol 120, LDL Cholesterol 35, VLDL Cholesterol 46 H, HDL Cholesterol 39 L, TSH 6.62 H 10/02/23 14:16: PT 17.3 H, INR 1.4, APTT 25.3 10/03/23 04:00: WBC 17.3 H, RBC 4.27 L, Hgb 12.9 L, Hct 40.4, MCV 94.6 H, MCH 30.2, MCHC 31.9 L, RDW Std Deviation 45.0 H, RDW Coeff of Shaggy 13.2, Plt Count 178, MPV 10.9, Sodium 141, Potassium 6.2 H*, Chloride 111 H, Carbon Dioxide 21.0, Anion Gap 9, BUN 50 H, Creatinine 2.62 H, Estim Creat Clear Calc 25.37, Est GFR (MDRD) Af Amer 30 L, Est GFR (MDRD) Non-Af 25 L, BUN/Creatinine Ratio 19.1, Glucose 211 H, Calcium 7.7 L Cardiology Labs/Tests 10/02/23 13:40: WBC 11.1 H, RBC 4.78, Hgb 14.5, Hct 47.5, MCV 99.4 H D, MCH 30.3, MCHC 30.5 L D, Plt Count 158, MPV 11.4, Immature Gran % (Auto) 4.000 H, Neut % (Auto) 46.8 L, Lymph % (Auto) 38.7, [place] % (Auto) 7.7, Eos % (Auto) 1.8, Baso % (Auto) 1.0, Absolute Neuts (auto) 5.2, Nucleated RBC % 0.4, PT Cancelled, INR Cancelled, APTT Cancelled, Sodium 144, Potassium 3.2 L, Chloride 107, Carbon Dioxide 18.0 L, Anion Gap 19 H, BUN 33 H, Creatinine 1.94 H, Est GFR (MDRD) Af Amer 43 L, Est GFR (MDRD) Non-Af 35 L, BUN/Creatinine Ratio 17.0, Glucose 274 H, Hemoglobin A1c 5.8 H, Calcium 8.9, Magnesium 2.3, Triglycerides 233 H 03/19/24 13:40: Triglycerides 232 H, Cholesterol 120, LDL Cholesterol 35, VLDL Cholesterol 46 H, HDL Cholesterol 39 L 10/02/23 14:16: PT 17.3 H, INR 1.4, APTT 25.3 10/03/23 04:00: WBC 17.3 H, RBC 4.27 L, Hgb 12.9 L, Hct 40.4, MCV 94.6 H, MCH 30.2, MCHC 31.9 L, Plt Count 178, MPV 10.9, Sodium 141, Potassium 6.2 H*, Chloride 111 H, Carbon Dioxide 21.0, Anion Gap 9, BUN 50 H, Creatinine 2.62 H, Est GFR (MDRD) Af Amer 30 L, Est GFR (MDRD) Non-Af 25 L, BUN/Creatinine Ratio 19.1, Glucose 211 H, Calcium 7.7 L Rhythm: EKG: ECHO: Stress Test: Cardiac Cath: PCI: CT Surgery: Holter monitor: EPS: PPM: CXR: Chest CT Scan: Radiography Diagnostic Testing: Radiology Impression Brain CT 10/02/23 13:50 IMPRESSION: Chronic involutional changes of the brain. Stable examination. Electronically Signed: Connor Garcia MD at 14:56 EDT , Cervical Spine CT 10/02/23 14:29 IMPRESSION: Multilevel degenerative changes, as described above. Electronically Signed: Connor Garcia MD at 14:53 EDT , Chest X-Ray 10/02/23 14:40 IMPRESSION: Mild cardiomegaly. Minimal increased markings in the right midlung suggestive of atelectasis. The tip of the endotracheal tube is at 4.1 cm proximal to hafsa. Electronically Signed: Connor Garcia MD at 14:57 EDT , Echocardiogram 10/02/23 15:26 Interpretation Summary Normal LV size. The left ventricular ejection fraction is 30 %. Mild concentric left ventricular hypertrophy. Moderately severe segmental systolic dysfunction (see wall motion). Contrast injection was performed. Ordering Physician: Moi Mo Referring Physician: Vinay Blackburn Performed By: Iza Ambrosio, RDGIBSON, RVT Chest X-Ray 10/02/23 17:20 IMPRESSION: Increasing bilateral airspace disease.. Possible new subcutaneous gas right lateral chest wall. No pneumothorax noted. Electronically Signed: Sumit Livingston MD at 19:26 EDT , Chest X-Ray 10/02/23 23:00 IMPRESSION: New PICC line on the right terminates in the superior vena cava. Subcutaneous gas is increased right lateral chest wall. Clinical correlation required. No pneumothorax noted. Increasing right lower lobe airspace disease. Electronically Signed: Sumit Livinsgton MD at 0:07 EDT , Physical Exam Const alert, oriented x3 and no apparent distress General Appearance: cooperative HEENT hearing grossly normal bilaterally Head and Scalp: atraumatic Eyes EOMs intact bilaterally Neck General: normal visual inspection Chest inspection of chest normal and palpation of chest normal Resp normal respiratory effort Auscultation: clear to auscultation bilaterally Cardio regular rate, regular rhythm, S1 normal heart sound and S2 normal heart sound Jugular Venous Distention: JVD GI normal to inspection, nondistended, normoactive bowel sounds Extremity normal capillary refill and no pedal edema Peripheral Pulses: Yes pulses 2+ throughout and femoral pulses present Skin no rashes or lesions noted Neuro oriented x3 and CN's II-XII intact bilaterally Psych Appearance: grossly normal and appropriate Assessment & Plan Assessment/Plan (1) Cardiopulmonary arrest: PLAN: He is status post witnessed cardiopulmonary arrest. At this time he appears to be intubated and it is not clear what the state of mentation is. He does have adequate blood pressure as well as heart rate and his echocardiogram demonstrated reduced ejection fraction of 30%. I did explain to the family that we will need to see the state of recovery of mental function before resorting to any invasive therapy such as a cardiac catheterization. They did express understanding at this time. I also did suggest to the family that they should consider what intervention is required if he should go into a further cardiac dysrhythmia. In the meantime he will remain on intravenous amiodarone. (2) Ischemic cardiomyopathy: PLAN: He does have evidence of ischemic cardiomyopathy with his estimated ejection fraction now at approximately 30% with inferior posterior hypokinesis noted. This may be evaluated at a later date. He does have evidence of further renal dysfunction. He may require some intravenous fluid for pressor support. (3) History of coronary artery bypass graft: PLAN: He is status post coronary bypass graft surgery. He is almost 8 years post bypass surgery. Depending on his recovery of mental function this may need to be reevaluated. (4) Paroxysmal atrial fibrillation: PLAN: He does have a history of atrial fibrillation is on Eliquis at this time he is maintaining sinus rhythm currently. His Eliquis will be on hold for the meantime pending improvement in his mental function. (5) Essential hypertension: PLAN: His blood pressure appears to be adequate at this particular time I would not recommend we make any major changes. Thank you for allowing me to participate in the care of your patient. Please don't hesitate to call if any issues arise.
--- NOTE | 2023-10-03 07:12 | EX.PCM.CONCC ---
Assessment & Plan Assessment/Plan (1) Acute on chronic HFrEF (heart failure with reduced ejection fraction): (2) Ventricular fibrillation: (3) Cardiac arrest: (4) Cardiopulmonary arrest: PLAN: Plan RECOMMENDATIONS: 1. Continue assist-control mode mechanical ventilation. Wean FiO2 and PEEP to maintain saturations at or above 90%. 2. Continue Levophed to maintain a mean arterial pressure at or above 65 mmHg. 3. Continue amiodarone per cardiology recommendations. 4. Hold sedating medications for now to better assess neurologic status. 5. Start empiric antimicrobials. 6. Obtain blood and urine cultures. 7. Goals of care discussion with the patient's family. IMPRESSIONS: 1. V-fib cardiac arrest/history of ischemic cardiomyopathy status post CABG/paroxysmal atrial fibrillation The patient presented as a out of hospital cardiac arrest with subsequent ROSC following ACLS. The patient was intubated as a consequence of the aforementioned. Cardiology is currently following to assist with medical management. At the present time, the patient is being maintained on amiodarone. The patient may eventually require an ischemic evaluation once medically stabilized. 2. Acute respiratory failure The patient was ultimately intubated as a consequence of his out of hospital cardiac arrest. His chest imaging demonstrated subcutaneous air in the right chest wall without a discernible pneumothorax. Depending on his clinical course, the patient may require CT imaging of the chest for further evaluation. There also appears to be a evolving airspace opacity in the right lung, which may be secondary to pneumonia versus pulmonary contusion from CPR. Regardless, the patient is going to be initiated on empiric antimicrobial therapy. Plan to continue current supportive care including invasive mechanical ventilatory support, pending further discussion with the patient's family regarding goals of care. 3. Multifactorial shock The patient remains on a significant amount of Levophed to maintain hemodynamic stability. His current hemodynamic status is likely multifactorial in etiology with underlying cardiogenic causes and possible sepsis contributing. For now, we will continue current supportive care including Levophed to maintain a mean arterial pressure at or above 65 mmHg. Blood and urine cultures will be obtained. The patient will be initiated on empiric antibiotics. 4. Acute on chronic kidney disease Most likely prerenal in etiology in the setting of multifactorial shock and cardiac arrest. Urine output is decreasing. The patient will be continued on vasopressor support in an attempt to maintain hemodynamic stability. Continue to monitor urine output for now. There is no emergent indication at the present time for renal replacement therapy. However, if the renal function continues to worsen, nephrology consultation will be obtained. 5. Encephalopathy Unclear if there is a component of anoxic brain injury. Plan to withhold all sedating medications this morning to better assess the patient's neurologic status. Initial CT head at presentation was unremarkable. 6. History of progressive dementia/obesity/hypothyroidism/hypertension/hyperlipidemia Complicates care, management, recovery and prognosis. Continue supportive measures as noted above. UPDATE: I met with the patient's family this morning at the bedside and engaged them in a detailed discussion regarding the patient's clinical status and overall goals of care. Once the patient was fully updated regarding the patient's current clinical status, they have elected to pursue the initiation of comfort care measures, with plans for terminal extubation. They are awaiting the arrival of several additional family members prior to proceeding, however. Will continue the aforementioned interventions as noted above, pending arrival of additional family members, after which time, the patient will be transitioned to DNR CC, per family request. TIME: 48 minutes of critical care time, independent of procedures, was spent addressing the patient's cardiac arrest, acute respiratory failure, multifactorial shock, acute on chronic kidney disease, encephalopathy, review of all data and collaboration with the care team. HPI Consult Data Date of Consult: 10/03/23 HPI Narrative Reason for Consultation: Acute respiratory failure status post cardiac arrest HPI Narrative: The patient is an 83-year-old male, with a history as outlined below, who presented to the emergency department via EMS after being found down unresponsive in ventricular fibrillation. According to report, the patient the patient has a known history of coronary artery disease status post CABG along with worsening dementia over the last several years. He apparently became angry over the fact that his car keys were taken from him. He subsequently left the house and was apparently walking to a local [employer] when he collapsed. Bystander CPR was initiated by police officers who were first on the scene. EMS resumed care within 2 minutes. He was initially noted to be in ventricular fibrillation, which was defibrillated in the field. An Igel was placed by EMS. ROSC was ultimately achieved upon arrival to the emergency department. On presentation to the emergency department, the patient's i-gel was removed and an endotracheal tube was placed. His initial laboratory evaluation demonstrated a normal white blood cell count. Hemoglobin and platelet count were normal. Chemistry profile was notable for a potassium of 3.2 and creatinine of 1.94. Bicarbonate was low at 18. CT head revealed chronic involutional changes of the brain. Cervical spine CT demonstrated multilevel degenerative changes. Chest x-ray demonstrated no acute cardiopulmonary process. The patient was initiated on amiodarone and subsequently admitted to the medical intensive care unit for further management. Ultimately, due to persistent hypotension, the patient was started on vasopressor support. The patient was also recently evaluated in the emergency department on September 29 with confusion. He was ultimately discharged home after it was felt that his increasing confusion was likely secondary to dementia. However, a urine analysis that was completed at that time revealed that the patient was positive for nitrites, leukocyte Estrace and 1+ urine bacteria. This morning, the patient remains on Levophed at 25 mcg/min. The patient is stable from a respiratory perspective on assist-control mode mechanical ventilation with an FiO2 requirement of 40% and PEEP of 5. He is sedated on a combination of propofol and fentanyl. Given that the patient's chest x-ray from last evening demonstrated subcutaneous gas in the right lateral chest wall along with increasing right lower lobe airspace disease, a follow-up chest x-ray was obtained this morning. In addition, given the findings noted on his urine analysis from 3 days ago, coupled with the chest x-ray findings, the patient was initiated on antimicrobial therapy. Blood and urine cultures were ordered to be collected. [facility] Medical History Abdominal discomfort Atherosclerotic heart disease of [place] coronary artery without angina pectoris Benign liver cyst Bilateral carotid artery stenosis Essential hypertension Facial cellulitis Heart disease Hypothyroidism Ischemic cardiomyopathy Nonrheumatic aortic (valve) stenosis with insufficiency Old myocardial infarction Paroxysmal atrial fibrillation Pure hypercholesterolemia Segmental and somatic dysfunction of cervical region Segmental and somatic dysfunction of head region Segmental and somatic dysfunction of lumbar region Segmental and somatic dysfunction of pelvic region Segmental and somatic dysfunction of thoracic region Home Medications apixaban 5 mg tablet (Eliquis) 5 mg PO BID 09/14/20 [History Last Taken Unknown] levothyroxine 88 mcg tablet 88 mcg PO DAILY 12/21/20 [History Last Taken Unknown] lisinopril 20 mg tablet 20 mg PO BID 12/21/20 [History Last Taken Unknown] metoprolol succinate 25 mg tablet,extended release 24 hr 25 mg PO DAILY 12/21/20 [History Last Taken Unknown] multivitamin 1 tab PO DAILY 12/21/20 [History Last Taken Unknown] mupirocin 2 % ointment topical kit 1 applic topical BID #1 ea 02/08/21 [Rx Last Taken Unknown] atorvastatin 40 mg tablet 40 mg PO QHS 10/02/23 [History Last Taken Unknown] mv-min-vit C-ascorb Ql-Cnv-Exe-herb #124 333 mg-1.7 mg chewable tablet (Airborne (ascorbate sodium)) 1 tab PO DAILY SUPPLEMENT 10/02/23 [History Last Taken Unknown] Allergy/AdvReac Type Severity Reaction Status Date / Time No Known Allergies Allergy Verified 10/02/23 14:53 Family History Mother CAD (coronary artery disease) Myocardial infarction Sudden cardiac , Onset Age: 52 Brother Sudden cardiac , Onset Age: 62 Other Heart disease Surgical History History of brain surgery History of cardioversion History of coronary artery bypass graft (~07/26/17) History of hernia surgery History of partial colectomy Social History Smoking Status: Never smoker alcohol intake: never substance use type: does not use caffeine: No what type of physical activity do you participate in: walking, swimming and weight training seatbelt use: always do you feel safe at home: Yes ROS Review of Systems ROS Unobtainable: due to mental status Physical Exam Const Constitutional Narrative: Intubated, sedated and mechanically ventilated. No ventilator dyssynchrony noted. HEENT normocephalic and head/scalp atraumatic Mouth: endotracheal tube in place and OG tube in place Eyes EOMs intact bilaterally and conjunctivae normal Neck supple General: trachea midline Chest inspection of chest normal Resp normal respiratory effort Auscultation: Negative for rales, rhonchi or wheezes Cardio S1 normal heart sound and S2 normal heart sound Rate: bradycardia GI normal to inspection, nondistended, normoactive bowel sounds Extremity no clubbing, cyanosis or edema Skin no rashes or lesions noted Neuro Sensorium / Orientation: sedated on vent Lab / Micro Data 10/03/23 04:00 10/03/23 07:50 Labs: Laboratory Results - last 24 hr 10/02/23 13:40: WBC 11.1 H, RBC 4.78, Hgb 14.5, Hct 47.5, MCV 99.4 H D, MCH 30.3, MCHC 30.5 L D, RDW Std Deviation 46.9 H, RDW Coeff of Shaggy 12.8, Plt Count 158, MPV 11.4, Immature Gran % (Auto) 4.000 H, Neut % (Auto) 46.8 L, Lymph % (Auto) 38.7, Cache % (Auto) 7.7, Eos % (Auto) 1.8, Baso % (Auto) 1.0, Absolute Neuts (auto) 5.2, Absolute Lymphs (auto) 4.30, Nucleated RBC % 0.4, PT Cancelled, INR Cancelled, APTT Cancelled, Sodium 144, Potassium 3.2 L, Chloride 107, Carbon Dioxide 18.0 L, Anion Gap 19 H, BUN 33 H, Creatinine 1.94 H, Estim Creat Clear Calc 34.49, Est GFR (MDRD) Af Amer 43 L, Est GFR (MDRD) Non-Af 35 L, BUN/Creatinine Ratio 17.0, Glucose 274 H, Hemoglobin A1c 5.8 H, Calcium 8.9, Magnesium 2.3, Total Creatine Kinase 233, Troponin I High Sens 50, Triglycerides 233 H 10/02/23 13:40: Triglycerides 232 H, Cholesterol 120, LDL Cholesterol 35, VLDL Cholesterol 46 H, HDL Cholesterol 39 L, TSH 6.62 H 10/02/23 14:16: PT 17.3 H, INR 1.4, APTT 25.3 10/03/23 04:00: WBC 17.3 H, RBC 4.27 L, Hgb 12.9 L, Hct 40.4, MCV 94.6 H, MCH 30.2, MCHC 31.9 L, RDW Std Deviation 45.0 H, RDW Coeff of Shaggy 13.2, Plt Count 178, MPV 10.9, Sodium 141, Potassium 6.2 H*, Chloride 111 H, Carbon Dioxide 21.0, Anion Gap 9, BUN 50 H, Creatinine 2.62 H, Estim Creat Clear Calc 25.37, Est GFR (MDRD) Af Amer 30 L, Est GFR (MDRD) Non-Af 25 L, BUN/Creatinine Ratio 19.1, Glucose 211 H, Calcium 7.7 L Imaging Radiology Impression Brain CT 10/02/23 13:50 IMPRESSION: Chronic involutional changes of the brain. Stable examination. Electronically Signed: Connor Garcia MD at 14:56 EDT , Cervical Spine CT 10/02/23 14:29 IMPRESSION: Multilevel degenerative changes, as described above. Electronically Signed: Connor Garcia MD at 14:53 EDT , Chest X-Ray 10/02/23 14:40 IMPRESSION: Mild cardiomegaly. Minimal increased markings in the right midlung suggestive of atelectasis. The tip of the endotracheal tube is at 4.1 cm proximal to hafsa. Electronically Signed: Connor Garcia MD at 14:57 EDT , Echocardiogram 10/02/23 15:26 Interpretation Summary Normal LV size. The left ventricular ejection fraction is 30 %. Mild concentric left ventricular hypertrophy. Moderately severe segmental systolic dysfunction (see wall motion). Contrast injection was performed. Ordering Physician: Moi Mo Referring Physician: Vinay Blackburn Performed By: Iza Ambrosio, EMILICS, RVT Chest X-Ray 10/02/23 17:20 IMPRESSION: Increasing bilateral airspace disease.. Possible new subcutaneous gas right lateral chest wall. No pneumothorax noted. Electronically Signed: Sumit Livingston MD at 19:26 EDT , Chest X-Ray 10/02/23 23:00 IMPRESSION: New PICC line on the right terminates in the superior vena cava. Subcutaneous gas is increased right lateral chest wall. Clinical correlation required. No pneumothorax noted. Increasing right lower lobe airspace disease. Electronically Signed: Sumit Livingston MD at 0:07 EDT , Charges/Coding Procedures Hospitalists Procedures: [id number] Critical Care 1st Hr
--- NOTE | 2023-10-03 07:16 | NURSING ---
0700 propofol/fentanyl paused per Dr. Flores.
--- NOTE | 2023-10-03 07:41 | CPS ---
Pt is off sedation at the time of this check
--- NOTE | 2023-10-03 07:55 | RAD_ITS ---
ACR Level 3 findings have been noted. An addendum which confirms receipt of the report will follow. HISTORY: Respiratory Failure. TECHNIQUE: XR Chest 1 View. COMPARISON: Prior day. FINDINGS: LINES/TUBES: Right BOTTOM SANDER shunt catheter, right PICC, endotracheal tube, and nasogastric tube remain in place. CARDIOMEDIASTINAL BORDERS: Stable with midline sternotomy and coronary artery bypass graft. LUNGS: Increased consolidation in the bilateral lungs most confluent in the right lung base. PLEURA: Right pleural effusion with right apical and lateral pneumothorax measuring approximately 3.7 cm in thickness at the apex with increased right chest wall and cervical emphysema. RAD/Chest 1 View (Portable) IMPRESSION: Mild-moderate right pneumothorax with increased right chest wall and cervical subcutaneous emphysema. Right pleural effusion with increased atelectasis or pneumonia in the bilateral lungs. Electronically Signed: Mónica Hutton MD at 9:00 EDT ,
[2023-10-03] MEDS: Piperacil/Tazobactam 3.375 GM in 0.9% Normal Saline (50mL MB+) 50 ML IV (08:26)
[2023-10-03 08:59] LABS: Anion Gap 11 (5-15); BUN 51 mg/dL (7-18); BUN/Creat Ratio 19.1 RATIO (10-20); Calcium,Total 8.2 mg/dL (8.5-10.1); Chloride 114 mmol/L (98-107); Creatinine, Serum 2.67 mg/dL (0.70-1.30); EST Glomerular Filtration Rate 24 mL/min (>60); Est Glom Filt Rate - Afr Amer 30 mL/min (>60); Estimated Creatinine Clearance 25.08 ml/min; Glucose 166 mg/dL (74-106); Sodium Level 141 mmol/L (136-145)
--- NOTE | 2023-10-03 09:51 | CASEMGMT ---
Per the pt RN, the family has decided to withdraw care for this pt once the rest of the pt family arrives.
[2023-10-03] MEDS: fentaNYL drip 100 ML 12.5 MCG CONT INF (09:58)
[2023-10-03 10:19] LABS: M R Staph aureus DNA By PCR POSITIVE (Negative); Probe Check PASS
[2023-10-03] MEDS: LORazepam 2 MG/ML Syringe IV ×3 (10:47→12:54)
[2023-10-03] MEDS: Morphine 4 MG/ML Syringe IV ×3 (10:47→12:53)
[2023-10-03] MEDS: Atropine Sulfate 1% 2 ml Bottle 4 DRP PO (11:09)
--- NOTE | 2023-10-03 11:10 | CPS ---
Per Dr Flores, Pt is terminally extubated at this time. RN and RT in the room
--- NOTE | 2023-10-03 15:03 | PCM.DEATH ---
Preliminary Cause of Preliminary Cause of Preliminary Cause of : acute cardiopulmonary arrest due to ventricular fibrillation Date of Admission: 10/02/23 Date of : 10/03/23 Principle Diagnosis acute cardiac arrest due to ventricular fibrillation Problem List: Active and Suspected Problems (Updated 12/21/20 @ 12:03 by Niki Kelly) Ventricular fibrillation (Acute) Cardiac arrest (Acute) Airway intubation performed without difficulty (Acute) History of CAD (coronary artery disease) (Acute) Cardiopulmonary arrest (Acute) Ischemic cardiomyopathy (Acute) Paroxysmal atrial fibrillation (Acute) Essential hypertension (Acute) History of coronary artery bypass graft (Acute ~07/26/17) CABG x3: WILKERSON to LAD,SVG to OM, SVG to PDA by Dr. Dias 07/26/17 Hospital Course Patient is an 83-year-old male with a past medical history as outlined was admitted via the ED on 10/02/2023 after he had an out of hospital cardiac arrest. Patient was out and about when he collapsed while walking. Family witnessed the collapse. EMS was called and police arrived on the scene within 2 minutes. CPR was initiated and EMS arrived shortly after that. Initial rhythm was identified as ventricular fibrillation and he was defibrillated x 1. He converted to sinus rhythm and had return of spontaneous circulation. He had an Igel placed in the field. In the ED was successfully intubated. He was started on amiodarone and admitted to the ICU to be managed for acute cardiac arrest due to ventricular fibrillation. He had a history of CAD and had CABG x 3 in 2017 and had known EF of 45 to 50% from 2D echo done in October 2018. Patient had defaulted follow-up with cardiology for 2020. Cardiology and critical care were consulted. Family however opted to withdraw care. Care was therefore withdrawn on 10/03/2023 and patient at 13:13 on 10/03/2023. Cause of is acute cardiopulmonary arrest due to ventricular fibrillation. Visit Charges Inpatient E&M: 04839 Disch Hosp
== END 2023-10-03 15:00 | DRG 308 ==
LOC: ED 14:44 → ICU 15:25
PROVIDERS: Family Medicine; Internal Medicine Critical Care Medicine; Admitting Provider Hospitalist; Emergency Provider Emergency Medicine; PCP Family Medicine; Visit Provider Student in an Organized Health Care Education/Training Program
DX: I49.01 Ventricular fibrillation (principal); I50.23 Acute on chronic systolic (congestive) heart failure; J96.01 Acute respiratory failure with hypoxia; G93.41 Metabolic encephalopathy; I13.0 Hypertensive heart and chronic kidney disease with heart failure and stage 1 through stage 4 chronic kidney disease, or unspecified chronic kidney disease; R57.8 Other shock; I95.9 Hypotension, unspecified; E87.5 Hyperkalemia; F03.90 Unspecified dementia, unspecified severity, without behavioral disturbance, psychotic disturbance, mood disturbance, and anxiety; I46.9 Cardiac arrest, cause unspecified; I48.0 Paroxysmal atrial fibrillation; I47.20 Ventricular tachycardia, unspecified; E03.9 Hypothyroidism, unspecified; N18.9 Chronic kidney disease, unspecified; I25.5 Ischemic cardiomyopathy; I25.10 Atherosclerotic heart disease of native coronary artery without angina pectoris; E78.00 Pure hypercholesterolemia, unspecified; I25.2 Old myocardial infarction; Z68.33 Body mass index [BMI] 33.0-33.9, adult; R53.81 Other malaise; Z79.01 Long term (current) use of anticoagulants; E66.9 Obesity, unspecified; Z90.49 Acquired absence of other specified parts of digestive tract; Z95.1 Presence of aortocoronary bypass graft; Z98.2 Presence of cerebrospinal fluid drainage device; Z79.899 Other long term (current) drug therapy; Z85.841 Personal history of malignant neoplasm of brain
CPT/HCPCS: 31500; 36569; 70450; 71045; 72125; 75809; 80048; 80061; 81001; 82550; 83036; 83735; 84443; 84478; 84484; 85025; 85027; 85610; 85730; 87040; 87070; 87077; 87086; 87088; 87184; 87186; 87205; 87641; 92950; 93005; 93306; 94002; 94003; 94640; 99283; 99285; J7030; J7050; Q9957; A4216; C8929; J0612